=== PATIENT | female | born 2000 | race Caucasian/White ===

== ENCOUNTER → 2018-06-12 15:55 | Outpatient (CLI) | payer OTHER, SELFPAY ==
[2018-06-13 08:48] LABS: Rubella IgG 67.3 IU/mL
[2018-06-14 14:53] LABS: Hep B Surface Antibodies Reactive (.)
[2018-06-14 14:54] LABS: Mumps Antibody,IgG > 300.0 AU/mL (Immune >10.9); Rubeola IgG Ab > 300.0 AU/mL (Immune >29.9); V-Zoster IgG (Immunity) > 4000 index (Immune >165)
== END ==
PROVIDERS: Visit Provider Family Medicine
DX: Z02.9 Encounter for administrative examinations, unspecified (principal)
CPT/HCPCS: 36415; 86706; 86735; 86762; 86765; 86787

== ENCOUNTER → 2018-09-17 18:49 | Outpatient (CLI) | payer OTHER, SELFPAY ==
[2018-09-17 10:00] VITALS: BMI 28.0
[2018-09-17 21:13] LABS: Chlamydia Trachomatis by PCR Negative (Negative); Neisserai gonorrhoeae by PCR Negative (Negative); Probe Check PASS; Sample Adequacy Control PASS; Specimen Processing Control PASS
== END ==
PROVIDERS: Family Provider Family Medicine; PCP Family Medicine; Referring Provider Nurse Practitioner Women's Health; Visit Provider Nurse Practitioner Women's Health
DX: Z11.3 Encounter for screening for infections with a predominantly sexual mode of transmission (principal)
CPT/HCPCS: 87491; 87591

== ENCOUNTER → 2019-09-18 13:44 | Outpatient (CLI) | payer OTHER, SELFPAY ==
[2019-09-18 10:25] VITALS: BMI 28.0
[2019-09-18 18:17] LABS: Chlamydia Trachomatis by PCR Negative (Negative); Neisserai gonorrhoeae by PCR Negative (Negative); Probe Check PASS; Sample Adequacy Control PASS; Specimen Processing Control PASS
[2019-09-23 22:39] LABS: HPV Reflexed? NOT INDICATED
== END ==
PROVIDERS: Family Provider Family Medicine; PCP Family Medicine; Visit Provider Nurse Practitioner Women's Health
DX: Z11.3 Encounter for screening for infections with a predominantly sexual mode of transmission (principal); Z12.4 Encounter for screening for malignant neoplasm of cervix
CPT/HCPCS: 87491; 87591; 88175; G0145

== ENCOUNTER → 2020-07-23 14:29 | Outpatient (CLI) | payer OTHER, SELFPAY ==
[2019-09-18 10:25] VITALS: BMI 28.0
[2020-07-23 17:59] LABS: Absolute Lymphocyte Count 1.32 X10^3/uL (0.83-4.51); Absolute Neutrophil Count 2.1 X10^3/uL (2.0-7.7); Basophil# 0.01 X10^3/uL; Basophil% 0.3 % (0-1); Eosinophil# 0.01 X10^3/uL; Eosinophils% 0.3 % (0-5); Hematocrit 42.3 % (37-47); Hemoglobin 13.3 g/dL (12.0-15.0); Lymphocyte # 1.32 X10^3/ul; Lymphocyte % 34.8 % (19-41); Mean Corp Hgb Conc 31.4 g/dL (32-36); Mean Corpuscular Hgb 26.2 pg (27.0-32.0); Mean Corpuscular Volume 83.4 fL (81-99); Mean Platelet Vol. 9.5 fl (6.2-12.0); Monocyte# 0.33 X10^3/uL; Monocyte% 8.7 % (0-10); NRBC Flagged by Analyzer 0 % (0-5); Neutrophil # 2.12 X10^3/uL (2.7-7.7); Neutrophil % 55.9 % (47-70); Platelet Count 358 K/mm3 (150-450); RBC Distribution Width CV 13.9 % (11.6-14.6); RBC Distribution Width SD 42.2 fl (35.1-43.9); Red Blood Count 5.07 M/mm3 (4.2-5.4); White Blood Count 3.8 K/mm3 (4.4-11.0)
[2020-07-23 18:06] LABS: Color, Urine Yellow (Yellow); Glucose, Dipstick Normal (Normal); Ketone-Dipstick Negative (Negative); Leukocyte Esterase-Dipstick Negative /ul (Negative); Nitrite-Dipstick Negative (Negative); Occult Blood-Urine 150 /ul (Negative); Protein-Dipstick 15 mg/dl (Negative); Urine Bilirubin Dipstick Negative (Negative); Urine Clarity Clear (Clear); Urine Urobilinogen Normal (Normal)
[2020-07-23 18:17] LABS: ALB/GLOB Ratio 0.8 RATIO (0.9-2.4); AST(SGOT) 16 U/L (15-37); Alanine Aminotransfer ALT/SGPT 28 U/L (13-56); Albumin, Serum 3.5 g/dL (3.2-5.0); Alkaline Phosphatase 96 U/L (45-117); Anion Gap 6 (5-15); BUN 9 mg/dL (7-18); BUN/Creat Ratio 10.5 RATIO (10-20); Bilirubin, Direct 0.11 mg/dL (0.00-0.30); Calcium,Total 9.1 mg/dL (8.5-10.1); Chloride 107 mmol/L (98-107); Cholesterol 219 mg/dL (200); Creatinine, Serum 0.86 mg/dL (0.55-1.02); EST Glomerular Filtration Rate 88 mL/min (>60); Est Glom Filt Rate - Afr Amer 107 mL/min (>60); Globulin 4.6 g/dL (2.2-4.2); Glucose 94 mg/dL (74-106); High Density Lipoprotein 55 mg/dL; LDH 139 U/L (84-246); Phosphorus 2.5 mg/dL (2.5-4.9); Potassium 3.8 mmol/L (3.5-5.1); Protein, Total 8.1 g/dL (6.4-8.2); Sodium Level 140 mmol/L (136-145); Triglycerides 150 mg/dL; Uric Acid 5.1 mg/dL (2.6-6.0); Very Low Density Lipoprotein 30 mg/dL (5-40)
== END ==
PROVIDERS: PCP Family Medicine; Referring Provider Family Medicine; Visit Provider Family Medicine
DX: Z00.00 Encounter for general adult medical examination without abnormal findings (principal)

== ENCOUNTER → 2020-09-21 | Outpatient (CLI) | payer OTHER, SELFPAY ==
[2020-09-21 10:07] VITALS: BMI 28.0
[2020-09-21 16:54] LABS: Chlamydia Trachomatis by PCR Negative (Negative); Neisserai gonorrhoeae by PCR Negative (Negative); Probe Check PASS; Sample Adequacy Control PASS; Specimen Processing Control PASS
== END | disposition home or self-care (01) ==
LOC: LABSPEC 13:22
PROVIDERS: PCP Family Medicine; Referring Provider Nurse Practitioner Women's Health; Visit Provider Nurse Practitioner Women's Health
DX: Z11.3 Encounter for screening for infections with a predominantly sexual mode of transmission (principal)
CPT/HCPCS: 87491; 87591

== ENCOUNTER → 2021-01-25 09:48 | Outpatient (CLI) | payer OTHER, SELFPAY ==
[2020-09-21 10:07] VITALS: BMI 28.0
--- NOTE | 2021-01-25 09:54 | US_ITS ---
STUDY: RENAL ULTRASOUND - COMPLETE REASON FOR EXAM: Female, 20 years old. ENCOUNTER FOR SCREENING OTHER DISORDER -- ENCOUNTER FOR OTHER DISORDER FAMILY HX POLYCYSTIC KIDNEYS TECHNIQUE: Ultrasound evaluation of the kidneys was performed with real-time and static urbano-scale imaging. COMPARISON: None. FINDINGS: RIGHT KIDNEY: Normal location of the right kidney, which is normal in size. The right kidney measures 10.2 cm x 5 cm x 4.3 cm. There is a normal cortex of the right kidney. The renal cortex measures 1.3 cm. There is no right renal mass or cyst. There are no right renal calculi. There is no right hydronephrosis. DISTAL RIGHT URETER: There is non-visualization of the distal right ureter. There is no demonstrated right ureterovesical junction calculus. There is no demonstrated right ureteral jet. LEFT KIDNEY: Normal location of the left kidney, which is normal in size. The left kidney measures 10.3 cm x 4.7 cm x 5.1 cm. There is a normal cortex of the left kidney. The renal cortex measures 1.9 cm. There is no left renal mass or cyst. There are no left renal calculi. There is no left hydronephrosis. DISTAL LEFT URETER: There is non-visualization of the distal left ureter. There is no demonstrated left ureterovesical junction calculus. There is no demonstrated left ureteral jet. BLADDER: The distended urinary bladder has a volume of 340 ml. There is a normal wall thickness of the distended urinary bladder. There is no demonstrated mass within the urinary bladder. There are no demonstrated bladder calculi. US/Kidney and Bladder IMPRESSION: Normal ultrasound of the kidneys and urinary bladder. Electronically Signed: Derek Lambert MD at 10:47 EDT , Service support ,
[2021-01-25 11:23] LABS: Protein, Urine (Random) 10.3 mg/dL (<11.9); Protein:Creat Ratio 79 mg/g CRE (0-200)
[2021-01-25 11:33] LABS: Albumin, Serum 3.3 g/dL (3.2-5.0); BUN 10 mg/dL (7-18); BUN/Creat Ratio 13.1 RATIO (10-20); Calcium,Total 8.8 mg/dL (8.5-10.1); Chloride 107 mmol/L (98-107); Creatinine, Serum 0.76 mg/dL (0.55-1.02); EST Glomerular Filtration Rate 100 mL/min (>60); Est Glom Filt Rate - Afr Amer 121 mL/min (>60); Glucose 84 mg/dL (74-106); Phosphorus 2.6 mg/dL (2.5-4.9); Potassium 3.7 mmol/L (3.5-5.1); Sodium Level 140 mmol/L (136-145)
== END ==
PROVIDERS: PCP Family Medicine; Referring Provider Internal Medicine Nephrology; Visit Provider Internal Medicine Nephrology
DX: Z13.89 Encounter for screening for other disorder (principal)
CPT/HCPCS: 36415; 76770; 80069; 82570; 84156

== ENCOUNTER → 2021-04-28 | Outpatient (CLI) | payer OTHER, SELFPAY ==
[2020-09-21 10:07] VITALS: BMI 28.0
== END | disposition home or self-care (01) ==
LOC: LABSPEC 10:40
PROVIDERS: PCP Family Medicine; Visit Provider Registered Nurse
DX: N90.7 Vulvar cyst (principal)
CPT/HCPCS: 87070; 87205

== ENCOUNTER → 2021-06-30 08:02 | Outpatient (REF) | payer OTHER, SELFPAY ==
[2021-06-30 09:41] LABS: Probe Check PASS; Specimen Processing Control PASS
== END ==
LOC: EMPH 08:02
PROVIDERS: PCP Family Medicine; Visit Provider Internal Medicine Infectious Disease
DX: Z00.00 Encounter for general adult medical examination without abnormal findings (principal)
CPT/HCPCS: 87635; U0005; U0003

== ENCOUNTER → 2021-07-07 15:01 | Outpatient (CLI) | payer OTHER, SELFPAY ==
[2021-07-07 17:39] LABS: Hemoglobin 12.7 g/dL (12.0-15.0); Mean Corp Hgb Conc 32.6 g/dL (32-36); Mean Corpuscular Volume 79.8 fL (81-99); Mean Platelet Vol. 9.8 fl (6.2-12.0); POSITIVE DIFFERENTIAL YES; POSITIVE MORPHOLOGY YES; Platelet Count 254 K/mm3 (150-450); RBC Distribution Width CV 14.1 % (11.6-14.6); RBC Distribution Width SD 41.3 fl (35.1-43.9); Red Blood Count 4.89 M/mm3 (4.2-5.4); White Blood Count 8.1 K/mm3 (4.4-11.0)
[2021-07-07 17:52] LABS: ALB/GLOB Ratio 0.5 RATIO (0.9-2.4); AST(SGOT) 129 U/L (15-37); Alanine Aminotransfer ALT/SGPT 175 U/L (13-56); Albumin, Serum 2.9 g/dL (3.2-5.0); Alkaline Phosphatase 274 U/L (45-117); Anion Gap 8 (5-15); BUN 6 mg/dL (7-18); BUN/Creat Ratio 6.9 RATIO (10-20); Calcium,Total 8.7 mg/dL (8.5-10.1); Chloride 106 mmol/L (98-107); Creatinine, Serum 0.86 mg/dL (0.55-1.02); EST Glomerular Filtration Rate 87 mL/min (>60); Est Glom Filt Rate - Afr Amer 105 mL/min (>60); Globulin 5.4 g/dL (2.2-4.2); Glucose 110 mg/dL (74-106); Potassium 3.7 mmol/L (3.5-5.1); Protein, Total 8.3 g/dL (6.4-8.2); Sodium Level 137 mmol/L (136-145)
[2021-07-07 19:23] LABS: Differential Indicated MANUAL DIFF
[2021-07-07 19:24] LABS: Atypical Lymphocyte 2+ %; Differential Comment SCANNED; Eosinophil 1 % (0-5); Lymphocyte 80 % (19-41); Monocyte 1 % (0-10); Neutrophil-Segmented 18 % (47-70); Platelet Estimate ADEQUATE (ADEQ); Total Cells Counted 100 (MANUAL DIFF)
[2021-07-07 19:25] LABS: Pathologist Review May foll; Red Cell Morphology NORM C+C NORMAL (NORM C&C)
[2021-07-07 19:26] LABS: Absolute Neutrophil Count 1.5 X10^3/uL (2.0-7.7); Neutrophil # 1.46 X10^3/uL (2.7-7.7)
[2021-07-07 19:27] LABS: Absolute Lymphocyte Count 6.48 X10^3/uL (0.83-4.51); Lymphocyte # 6.48 X10^3/ul (0.83-4.51)
[2021-07-08 10:33] LABS: Internal QC Validated? YES +Cl - CLEAR BKGD; Monotest POSITIVE (Negative)
== END ==
PROVIDERS: PCP Family Medicine; Referring Provider Family Medicine; Visit Provider Family Medicine
DX: R50.9 Fever, unspecified (principal); D72.820 Lymphocytosis (symptomatic)
CPT/HCPCS: 36415; 80053; 85025; 86140; 86308

== ENCOUNTER → 2021-07-30 16:23 | Outpatient (CLI) | payer OTHER, SELFPAY ==
[2021-07-30 16:41] LABS: Absolute Neutrophil Count 1.5 X10^3/uL (2.0-7.7); Basophil# 0.04 X10^3/uL; Eosinophil# 0.26 X10^3/uL; Eosinophils% 6.6 % (0-5); Hematocrit 37.3 % (37-47); Hemoglobin 11.9 g/dL (12.0-15.0); Lymphocyte % 45.5 % (19-41); Mean Corp Hgb Conc 31.9 g/dL (32-36); Mean Corpuscular Hgb 25.9 pg (27.0-32.0); Mean Corpuscular Volume 81.3 fL (81-99); Mean Platelet Vol. 8.8 fl (6.2-12.0); Monocyte# 0.36 X10^3/uL; Monocyte% 9.1 % (0-10); NRBC Flagged by Analyzer 0 % (0-5); Neutrophil # 1.48 X10^3/uL (2.7-7.7); Neutrophil % 37.3 % (47-70); Platelet Count 286 K/mm3 (150-450); RBC Distribution Width CV 14.9 % (11.6-14.6); RBC Distribution Width SD 44.5 fl (35.1-43.9); Red Blood Count 4.59 M/mm3 (4.2-5.4)
== END ==
PROVIDERS: PCP Family Medicine; Visit Provider Family Medicine
DX: B27.90 Infectious mononucleosis, unspecified without complication (principal)
CPT/HCPCS: 36415; 85025; 87070; 87077

== ENCOUNTER 2021-08-11 00:15 | Observation (INO) | payer OTHER, SELFPAY ==
[2021-08-11] VITALS (9 sets, daily range): BP systolic 105–144; BP diastolic 66–94; PULSE 76–107; RESP 14–23; TEMP 36.4–37; O2SAT 97–100; BMI 28.6; BMI 28.5
--- NOTE | 2021-08-11 01:20 | EKG12_ITS ---
Test Reason : CP Blood Pressure : / mmHG Vent. Rate : 101 BPM Atrial Rate : 101 BPM P-R Int : 138 ms QRS Dur : 078 ms QT Int : 360 ms P-R-T Axes : 060 057 026 degrees QTc Int : 466 ms Sinus tachycardia Otherwise normal ECG Confirmed by ALEXANDER CINTRON, SILVIA ([id number]), editor newspaper KEYANA ANDREWS ([id number]) on 08/17/2021 6:28:45 AM Referred By: BHARATHI Confirmed By:SILVIA MUNOZ MD
[2021-08-11 01:28] LABS: Absolute Lymphocyte Count 1.91 X10^3/uL (0.83-4.51); Basophil# 0.03 X10^3/uL; Basophil% 0.8 % (0-1); Eosinophil# 0.35 X10^3/uL; Eosinophils% 9.1 % (0-5); Hemoglobin 11.1 g/dL (12.0-15.0); Lymphocyte # 1.91 X10^3/ul (0.83-4.51); Lymphocyte % 49.6 % (19-41); Mean Corp Hgb Conc 32.6 g/dL (32-36); Mean Corpuscular Hgb 25.6 pg (27.0-32.0); Mean Corpuscular Volume 78.3 fL (81-99); Mean Platelet Vol. 8.5 fl (6.2-12.0); Monocyte% 15.6 % (0-10); NRBC Flagged by Analyzer 0 % (0-5); Neutrophil # 0.95 X10^3/uL (2.7-7.7); Neutrophil % 24.6 % (47-70); POSITIVE DIFFERENTIAL YES; Platelet Count 326 K/mm3 (150-450); RBC Distribution Width SD 39.7 fl (35.1-43.9); Red Blood Count 4.34 M/mm3 (4.2-5.4); White Blood Count 3.9 K/mm3 (4.4-11.0)
[2021-08-11 01:29] LABS: Differential Indicated SCAN CRITERIA MET
--- NOTE | 2021-08-11 01:37 | EDS_ITS ---
HPI History of Present Illness Chief Complaint: Chest Pain Narrative Narrative: Patient is a 20-year-old female who reports no significant past medical or surgical history. Today she's had intermittent bouts of chest discomfort which she states typically occurs when she is sitting up or leaning forward. She denies any trauma prior to the pain beginning and she denies any sick symptoms such as cough congestion. She denies any recent surgery traveler history of DVT/PE. She states that because the symptoms have been persistent for the past few days she is concerned and therefore presents for evaluation [facility] Medical History URI (upper respiratory infection) Home Medications norgestimate 0.25 mg-ethinyl estradiol 35 mcg tablet 1 tab PO QDAY #84 tab 09/21/20 [Rx Last Taken Unknown] Allergy/AdvReac Type Severity Reaction Status Date / Time Penicillins Allergy Mild Family Verified 09/21/20 10:05 history of reaction Family History Mother Kidney failure Heart disease Social History Smoking Status: Never smoker alcohol intake: current details: occasionally substance use type: does not use caffeine: Yes what type of physical activity do you participate in: none seatbelt use: always do you feel safe at home: Yes additional social history: [facility] lab ROS ROS ED Constitutional Constitutional ED: Denies chills or fever(s) ENT ENT ED: Denies rhinorrhea or sore throat Cardiovascular Cardiovascular: Reports chest pain; Denies palpitations or racing heartbeat Respiratory/Chest Respiratory/Chest: Denies cough or dyspnea Gastrointestinal Gastrointestinal: Denies abdominal pain, diarrhea, nausea or vomiting Genitourinary Genitourinary ED: Denies dysuria Musculoskeletal Musculoskeletal: Denies myalgias Integumentary Denies rash Neurologic Neurologic: Denies headache(s) Hematologic/Lymphatic Hematologic/Lymphatic: Denies easy bleeding or easy bruising EXAM Physical Exam Const Vital Signs: 08/11/21 00:16 08/11/21 00:44 08/11/21 03:38 Temperature 97.5 F L Temperature Source Temporal Pulse Rate 107 H 86 Respiratory Rate 18 23 H Respiratory Effort Normal Non-Labored Blood Pressure 144/94 H Blood Pressure Mean 110 Pulse Ox 100 98 Oxygen Delivery Method Room Air Room Air 08/11/21 05:15 Temperature Temperature Source Pulse Rate 77 Respiratory Rate 16 Respiratory Effort Blood Pressure Blood Pressure Mean Pulse Ox 98 Oxygen Delivery Method Room Air Positive well nourished and well developed General Appearance ED: well developed HEENT Reports moist mucous membranes Eyes PERRL and EOMs intact bilaterally Neck supple Chest Wall inspection of chest normal and palpation of chest normal Resp normal respiratory effort and clear to auscultation bilaterally Effort and Inspection: Negative for respiratory distress Cardio regular rate and regular rhythm Rate: other Other Details: No activity or friction rub noted GI normal to inspection, nondistended, normoactive bowel sounds, soft to palpation, non-tender, non-distended and no masses Auscultation: normoactive bowel sounds Palpation: soft Extremity normal to inspection Extremity Narrative: No asymmetric edema no pitting edema negative homicide bilaterally Neuro oriented x3 and CN's II-XII intact bilaterally Sensorium / Orientation: awake and alert Motor Exam: strength 5/5 throughout Psych mental status grossly normal Skin no rashes or lesions noted Heart Score History: Slightly/Non-Suspicious ECG: Normal Age: </= 45 years Risk Factors: No Risk Factors Troponin: >/=3 x Normal Limit Score: 2 MDM MDM MDM Narrative Medical decision making narrative: Patient presented to the ER just slightly tachycardic but otherwise in no acute distress. Her risk factors for coronary artery disease as well as DVT/PE are extremely low. However as she reported chest discomfort basic workup was obtained. Her initial troponin is elevated at 216 with the tachycardia D dimer was added. This was elevated and therefore CTA was obtained. CT revealed no acute pulmonary embolus or lung pathology. Delta troponin does show elevation trending up to 239. The case was discussed with cardiology and they recommend obtaining a high-sensitivity CRP a ESR COVID swab and a repeat troponin as well as EKG. they also recommend patient be admitted to observation for an echo later today. This plan of treatment was discussed with patient who was agreeable and therefore be admitted secondary to elevated troponin with concern that this is secondary to a viral myocarditis. Lab Data Attestation: I reviewed the patient's lab results. Labs: Laboratory Results - last 24 hr 08/11/21 08/11/21 08/11/21 01:22 01:22 01:22 WBC 3.9 L RBC 4.34 Hgb 11.1 L Hct 34.0 L MCV 78.3 L MCH 25.6 L MCHC 32.6 RDW Std Deviation 39.7 RDW Coeff of Luis 14.0 Plt Count 326 MPV 8.5 Immature Gran % (Auto) 0.300 Neut % (Auto) 24.6 L Lymph % (Auto) 49.6 H [place] % (Auto) 15.6 H Eos % (Auto) 9.1 H Baso % (Auto) 0.8 Absolute Neuts (auto) 1.0 L Absolute Lymphs (auto) 1.91 Nucleated RBC % 0 Differential Comment SCANNED Atypical Lymphocytes RARE PT INR APTT D-Dimer Quant (PE/DVT) 0.55 H* Sodium 141 Potassium 3.8 Chloride 108 H Carbon Dioxide 28.0 Anion Gap 5 BUN 12 Creatinine 0.76 Estim Creat Clear Calc 108.69 Est GFR (MDRD) Af Amer 121 Est GFR (MDRD) Non-Af 100 BUN/Creatinine Ratio 15.7 Glucose 115 H Calcium 8.7 Troponin I High Sens 216 H* 08/11/21 08/11/21 01:22 03:30 WBC RBC Hgb Hct MCV MCH MCHC RDW Std Deviation RDW Coeff of Luis Plt Count MPV Immature Gran % (Auto) Neut % (Auto) Lymph % (Auto) [place] % (Auto) Eos % (Auto) Baso % (Auto) Absolute Neuts (auto) Absolute Lymphs (auto) Nucleated RBC % Differential Comment Atypical Lymphocytes PT 13.6 INR 1.1 APTT 35.0 D-Dimer Quant (PE/DVT) Sodium Potassium Chloride Carbon Dioxide Anion Gap BUN Creatinine Estim Creat Clear Calc Est GFR (MDRD) Af Amer Est GFR (MDRD) Non-Af BUN/Creatinine Ratio Glucose Calcium Troponin I High Sens 239 H* Radiography Diagnostic Testing: Clinical Impression(s) from Imaging Studies Chest X-Ray 08/11/21 01:39 IMPRESSION: Radiographic findings suggest acute exacerbation of reactive airway disease and/or viral infection. Electronically Signed: Mariana Alfonso MD at 3:01 EDT , Service support , Chest CTA 08/11/21 01:55 IMPRESSION: No CTA demonstrated pulmonary embolism or arterial dissection. Electronically Signed: Mariana Alfonso MD at 3:27 EDT , Service support , Discharge Plan Triage Chief Complaint: Chest Pain ED Provider: Jama Frazier Dx/Rx/DC Orders Clinical Impression: Myocarditis, Elevated troponin Prescriptions: No Action norgestimate-ethinyl estradiol [Sprintec (28)] 0.25-35 mg-mcg tablet 1 tab PO QDAY Qty: 84 RF: 4 Primary Care Provider: Damion Rodriguez Referrals: Damion Rodriguez MD [Primary Care Provider] - Disposition Disposition: Acute Care Hospital [facility]
--- NOTE | 2021-08-11 01:39 | RAD_ITS ---
STUDY: X-RAY CHEST REASON FOR EXAM: Female, 20 years old patient with chest pain. TECHNIQUE: PA and lateral views of the chest. COMPARISON: Prior comparison studies are not available for review at this time. FINDINGS: Cardiac monitoring leads are present. The lungs are expanded. There is peribronchial cuffing and perihilar interstitial thickening. There is no evidence for airspace consolidation. There is no demonstrated pleural abnormality. Normal size heart. Normal mediastinum and chela. Normal visualized pulmonary arteries. Normal visualized aortic arch and descending thoracic aorta. Normal visualized thoracic spine. Normal visualized ribs, clavicles, and shoulders. There is no demonstrated abnormality of the visualized soft tissue structures of the upper abdomen. RAD/Chest PA and Lateral IMPRESSION: Radiographic findings suggest acute exacerbation of reactive airway disease and/or viral infection. Electronically Signed: Mariana Alfonso MD at 3:01 EDT , Service support ,
[2021-08-11 01:50] LABS: D-Dimer Quantitative (DVT/PE) 0.55 FEU/ug/m (0.27-0.49)
[2021-08-11 01:51] LABS: Anion Gap 5 (5-15); BUN 12 mg/dL (7-18); BUN/Creat Ratio 15.7 RATIO (10-20); Calcium,Total 8.7 mg/dL (8.5-10.1); Chloride 108 mmol/L (98-107); Creatinine, Serum 0.76 mg/dL (0.55-1.02); EST Glomerular Filtration Rate 100 mL/min (>60); Est Glom Filt Rate - Afr Amer 121 mL/min (>60); Estimated Creatinine Clearance 108.69 ml/min; Glucose 115 mg/dL (74-106); Potassium 3.8 mmol/L (3.5-5.1); Sodium Level 141 mmol/L (136-145); Troponin-I HS 216 pg/mL (3.0-54.0)
[2021-08-11 01:54] LABS: Atypical Lymphocyte RARE %; Differential Comment SCANNED
--- NOTE | 2021-08-11 01:55 | CT_ITS ---
STUDY: CTA CHEST REASON FOR EXAM: Female, 20 years old patient with chest pain with elevated D-Dimer RADIATION DOSAGE (If Supplied By Facility): CTDIvol = ( 8.36 ) mGy, DLP = ( 233.28 ) mGycm TECHNIQUE: The examination was performed with the intravenous administration of 75 mL of Isovue-370. Post-processing of the angiographic images was performed, with multiplanar reformation and 3D reconstruction. Individualized dose optimization techniques were used for this CT. COMPARISON: Prior comparison studies are not available for review at this time. FINDINGS: Normal enhancement of the main pulmonary artery and right and left pulmonary arteries. Normal enhancement of the bilateral peripheral pulmonary arteries. There is no demonstrated pulmonary embolism. Normal thoracic aorta and visualized great vessels. There is no demonstrated aortic dissection. Normal heart and pericardium. Normal mediastinum. Normal hilar regions. Normal visualized trachea and bronchi. The lungs are well expanded. Normal pulmonary parenchyma. Normal pleura. Normal chest wall structures. Normal osseous structures. Normal visualized upper abdomen. CT/CTA Chest W/WO Contrast IMPRESSION: No CTA demonstrated pulmonary embolism or arterial dissection. Electronically Signed: Mariana Alfonso MD at 3:27 EDT , Service support ,
[2021-08-11] MEDS: Aspirin 81 MG TAB.CHEW 324 MG PO (01:56)
[2021-08-11] MEDS: 0.9% Normal Saline 1,000 ML 999 ML IV (01:59)
[2021-08-11 02:18] LABS: International Normalized Ratio 1.1; Prothrombin Time (Protime)PT. 13.6 SECONDS (11.7-14.9)
[2021-08-11 04:00] LABS: Troponin-I HS 239 pg/mL (3.0-54.0)
--- NOTE | 2021-08-11 05:16 | EKG12_ITS ---
Test Reason : REPEAT EKG Blood Pressure : / mmHG Vent. Rate : 095 BPM Atrial Rate : 095 BPM P-R Int : 138 ms QRS Dur : 078 ms QT Int : 368 ms P-R-T Axes : 064 060 044 degrees QTc Int : 462 ms Normal sinus rhythm Normal ECG Confirmed by ALEXANDER CINTRON, SILVIA ([id number]), social media editor KEYANA ANDREWS ([id number]) on 08/17/2021 6:29:03 AM Referred By: BHARATHI Confirmed By:SILVIA MUNOZ MD
--- NOTE | 2021-08-11 05:53 | HP.PCM.HOS_ITS ---
HPI - General General Date of Admission: 08/11/21 HPI Narrative FAISAL CROCKETT, is a 20 F with previously no significant medical condition who presents with 2-day history of left-sided chest pain that radiated to her left neck and into the left side of her head. She described the pain as sharp and intermittent. The highest severity of the pain is 7 on a scale of 1-10. The pain improves with lying back and; lying on her abdomen. The pain worsens with leaning forward or bending over. She denies any nausea, vomiting or diaphoresis. She reported that about a month ago she had mononucleosis. Also close to 2 weeks ago she was diagnosed with Streptococcus pharyngitis. 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 Her mother has had a dislocated when she (mother) was in the 50s. [facility] Medical History URI (upper respiratory infection) Home Medications norgestimate 0.25 mg-ethinyl estradiol 35 mcg tablet 1 tab PO QDAY #84 tab [Rx Last Taken Unknown] Allergy/AdvReac Type Severity Reaction Status Date / Time Penicillins Allergy Mild Family Verified 09/21/20 10:05 history of reaction Family History Mother Kidney failure Heart disease Surgical History no surgical history no surgical history Social History Smoking Status: Never smoker alcohol intake: current details: occasionally substance use type: does not use caffeine: Yes what type of physical activity do you participate in: none seatbelt use: always do you feel safe at home: Yes additional social history: [facility] lab ROS ROS Narrative Constitutional: Denies fever, chills, fatigue, anorexia and change in weight Eyes: Denies blurry vision, change in eye color, change in vision, discharge from eye(s), double vision, erythema, eye pain, loss of vision or other HEENT: Reports headache. Denies abnormal hearing, dysphagia, ear pain, epistaxis, hearing loss, nasal congestion, nasal discharge, post nasal drip, sinus pressure, sore throat or other Cardiovascular: Report chest pain. Denies palpitations. Denies dyspnea on exertion, orthopnea and paroxysmal nocturnal dyspnea Respiratory/Chest: Denies cough, excessive phlegm production, shortness of breath with exertion and wheezing Gastrointestinal: Denies abdominal pain, coffee ground emesis, constipation, abigail rrhea, dyspepsia, hematemesis, hematochezia, loose stools, melena, nausea, vomiting or other Genitourinary: Denies burning urination, difficulty urinating, dysuria, hematuria, nocturia, urinary frequency, urinary hesitancy, urinary incontinence, urinary urgency or other Musculoskeletal: Reports left-sided neck pain. Denies arthralgias, back pain, joint pain, joint stiffness, joint swelling, myalgias, or other Neurologic: Denies abnormal gait, abnormal speech, confusion, disequilibrium, dizziness, focal weakness, headache(s), numbness, paresthesias, seizure-like activity, seizures, syncope, tingling, tremor(s) or other Psychiatric: Denies anxiety, depression, homicidal ideation, suicidal ideation or other Endocrinology: Denies change in body appearance, cold intolerance, excessive sweating, heat intolerance, polydipsia, polyuria or other Hematologic/Lymphatic: Denies anemia, easy bleeding, easy bruising, lymphadenopathy or other Integumentary: Denies rashes Allergic/Immunologic: Denies rhinitis, hives, eczema, asthma or other Vital Signs Vital Signs Vital Signs: 08/11/21 00:16 08/11/21 00:44 08/11/21 03:38 Temperature 97.5 F L Temperature Source Temporal Pulse Rate 107 H 86 Respiratory Rate 18 23 H Respiratory Effort Normal Non-Labored Blood Pressure 144/94 H Blood Pressure Mean 110 Pulse Ox 100 98 Oxygen Delivery Method Room Air Room Air 08/11/21 05:15 Temperature Temperature Source Pulse Rate 77 Respiratory Rate 16 Respiratory Effort Blood Pressure Blood Pressure Mean Pulse Ox 98 Oxygen Delivery Method Room Air Weight Weight: 80.467 kg Body Mass Index (BMI) 28.6 Physical Exam Narrative Physical exam: General: Well-nourished, well-developed. Head: Normocephalic, atraumatic, no tenderness Eyes: PERRLA, EOMI ENT, no trauma, moist mucous membranes, no rhinorrhea Neck: Nontender, full range of motion, no spinal tenderness, deformities, step- off CVS: Regular rate and rhythm. S1-S2 present. No murmur, gallop or rub. Respiratory : clear to auscultation bilaterally, chest wall nontender, no wheezing Abdomen: Soft, nontender, nondistended, normal bowel sounds, no masses : Deferred Back: Nontender, no CVA tenderness, no midline spinal tenderness, deformities, step-offs Extremities: Nontender full range of motion, no trauma Skin: Normal color, no trauma, abrasions Neuro: Alert, oriented, cranial nerves II through XII grossly intact. Psychiatry: Normal mood. Normal affect. Not depressed. Not anxious. Results Lab / Micro Data Result Diagrams: 08/11/21 01:22 08/11/21 01:22 Labs: Laboratory Results - last 24 hr 08/11/21 01:22: WBC 3.9 L, RBC 4.34, Hgb 11.1 L, Hct 34.0 L, MCV 78.3 L, MCH 25.6 L, MCHC 32.6, RDW Std Deviation 39.7, RDW Coeff of Luis 14.0, Plt Count 326, MPV 8.5, Immature Gran % (Auto) 0.300, Neut % (Auto) 24.6 L, Lymph % (Auto) 49.6 H, [place] % (Auto) 15.6 H, Eos % (Auto) 9.1 H, Baso % (Auto) 0.8, Absolute Neuts (auto) 1.0 L, Absolute Lymphs (auto) 1.91, Nucleated RBC % 0, Differential Comment SCANNED, Atypical Lymphocytes RARE 08/11/21 01:22: D-Dimer Quant (PE/DVT) 0.55 H* 08/11/21 01:22: Sodium 141, Potassium 3.8, Chloride 108 H, Carbon Dioxide 28.0, Anion Gap 5, BUN 12, Creatinine 0.76, Estim Creat Clear Calc 108.69, Est GFR (MDRD) Af Amer 121, Est GFR (MDRD) Non-Af 100, BUN/Creatinine Ratio 15.7, Glucose 115 H, Calcium 8.7, Troponin I High Sens 216 H* 08/11/21 01:22: PT 13.6, INR 1.1, APTT 35.0 08/11/21 03:30: Troponin I High Sens 239 H* Radiology Impression Chest X-Ray 08/11/21 01:39 IMPRESSION: Radiographic findings suggest acute exacerbation of reactive airway disease and/or viral infection. Electronically Signed: Mariana Alfonso MD at 3:01 EDT , Service support , Chest CTA 08/11/21 01:55 IMPRESSION: No CTA demonstrated pulmonary embolism or arterial dissection. Electronically Signed: Mariana Alfonso MD at 3:27 EDT , Service support , Assessment & Plan Assessment/Plan (1) Chest pain: QUALIFIERS: Chest pain type: unspecified Qualified Code(s): R07.9 - Chest pain, unspecified (2) Elevated troponin: PLAN: Chest pain Differential diagnosis include myocarditis; musculoskeletal chest pain; or other. Radiologist impression of chest x-ray: Suggestive of acute exacerbation of reactive airway disease and/or viral infection. Chest CTA was independently interpreted and I agree with the radiologist interpretation above. Actual EKG tracing was independently visualized. EKG tracing showed sinus tachycardia with rate of 105 and sinus rhythm with rate of 95 and with V1 and V2 T wave inversions. Received full dose aspirin at the emergency department. ASA 81 mg p.o. daily ordered High sensitive troponin slightly increased and then with a small rise on repeat. Emergency Department doctor discussed the case with cardiology who recommended another high-sensitivity troponin; high-sensitivity CRP (ordered at the ED and will be at outside lab); and ESR. Cardiology recommended echocardiogram; ordered. Cardiology consult. Stat EKG as needed for chest pain DVT prophylaxis: Low risk. Charges/Coding Visit Charges OBSV E&M: [id number] Initial observation care L2
--- NOTE | 2021-08-11 06:24 | ECHOD_ITS ---
Reason For Study: Chest Pain Procedure This was a 2D Doppler, Color Flow transthoracic echocardiogram. Exam performed portable in patient room. Left Ventricle Normal LV size. Left ventricular systolic function is normal. The estimated ejection fraction is 60 %. Normal diastology for age. No regional wall motion abnormalities noted. Right Ventricle Normal RV size. Normal systolic function. Atria Normal left atrium. Normal right atrium. Mitral Valve Normal mitral valve. Tricuspid Valve Normal tricuspid valve. Aortic Valve Normal aortic valve. Trisinus/trileaflet aortic valve. Pulmonic Valve Normal pulmonic valve. Great Vessels Normal aortic root. The pulmonary artery is normal size. Normal inferior vena cava. Pericardium/Pleural Trivial pericardial effusion. MMode/2D Measurements & Calculations LVIDd: 3.7 cm IVSd: 1.00 cm Ao root diam: 2.7 cm LVIDs: 2.3 cm LVPWd: 1.1 cm LA dimension: 3.1 cm FS: 37.6 % LAV(MOD-bp): 25.9 ml LA A4 area: 12.7 cm2 RA A4 area: 10.4 cm2 LAV(MOD-bp) Indexed: 13.6 ml/m2 LAV(MOD-sp2): 22.0 ml LAV(MOD-sp4): 28.0 ml Time Measurements MV dec time: 0.24 sec Doppler Measurements & Calculations MV E max jerry: 94.9 cm/sec Lat Peak E' Jerry: 11.0 cm/sec Med Peak E' Jerry: 8.5 cm/sec MV A max jerry: 69.6 cm/sec E/E' lat: 8.7 E/E' med: 11.1 MV E/A: 1.4 MV V2 max: 93.2 cm/sec MV P1/2t max jerry: 93.2 cm/sec Ao V2 max: 124.6 cm/sec MV max P.5 mmHg MV P1/2t: 85.0 msec Ao max P.2 mmHg MV V2 mean: 59.0 cm/sec MV dec slope: 321.1 cm/sec2 MV mean P.6 mmHg MVA(P1/2t): 2.6 cm2 MV V2 VTI: 19.5 cm LV V1 max: 105.2 cm/sec PA V2 max: 122.3 cm/sec LV V1 max P.4 mmHg ECHO/Echo Complete Interpretation Summary Normal LV size. Left ventricular systolic function is normal. The estimated ejection fraction is 60 %. Trivial pericardial effusion. Normal diastology for age. Ordering Physician: Keanu Perez Referring Physician: Damion Rodriguez Performed By: Rojelio Zhu RCS
--- NOTE | 2021-08-11 06:24 | EKG12_ITS ---
Test Reason : Blood Pressure : / mmHG Vent. Rate : 094 BPM Atrial Rate : 094 BPM P-R Int : 144 ms QRS Dur : 078 ms QT Int : 362 ms P-R-T Axes : 070 065 035 degrees QTc Int : 452 ms Normal sinus rhythm Nonspecific T wave abnormality Abnormal ECG When compared with ECG of 11-AUG-2021 05:30, MANUAL COMPARISON REQUIRED, DATA IS UNCONFIRMED Confirmed by ALEXANDER CINTRON, SILVIA ([id number]), brands editor KEYANA ANDREWS ([id number]) on 08/11/2021 1:37:05 PM Referred By: CASSANDRA Confirmed By:SILVIA MUNOZ MD
[2021-08-11 06:34] LABS: Troponin-I HS 287 pg/mL (3.0-54.0)
--- NOTE | 2021-08-11 07:01 | CON.PCM.CA_ITS ---
Assessment & Plan Assessment/Plan (1) Pericarditis: PLAN: Suspect the patient has acute pericarditis. At the moment there are no obvious EKG changes other than the subtle MA depression. I would like us to obtain an echocardiogram. I think the troponin elevation as part of this complex. * Would recommend starting indomethacin 25 mg 3 times a day * Omeprazole 20 mg a day * High-sensitivity C-reactive protein is elevated and would await ESR as well as echocardiogram. (2) Chest pain: QUALIFIERS: Chest pain type: unspecified Qualified Code(s): R07.9 - Chest pain, unspecified PLAN: The above appears to be atypical for coronary disease. The troponin elevation I suspect is secondary to pericardial endomyocardial involvement. * Will check a follow-up troponin. If noted to be not significantly elevated and the echocardiogram is normal then I would suggest outpatient follow-up. * I have discussed the above with the patient who understands. * * Thank you for allowing me to participate in the care of your patient. Please don't hesitate to call if any issues arise. HPI Consult Data Date of Consult: 08/11/21 HPI Narrative HPI Narrative: FAISAL CROCKETT, is a 20 F who presents with chest discomfort which she describes as sharp on and off going on for the last few days. She says that she did contract infectious mononucleosis a few weeks ago as well as a strep infection approximately a week ago. She had not been running any fever no diaphoresis no shortness of breath. However she describes a sharp chest discomfort going up the side of her neck and her shoulder as well as her arm. It appeared to be worse when she was laying recumbent. If she was lying on her left side it was also noted to be worse. She was not clear whether it was better when she was sitting up. 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 He was noted to be elevated. I was called to render an opinion. FORMERLY [facility], 1928–1983 Medical History URI (upper respiratory infection) Home Medications norgestimate 0.25 mg-ethinyl estradiol 35 mcg tablet 1 tab PO QDAY #84 tab 09/21/20 [Rx Last Taken Unknown] Allergy/AdvReac Type Severity Reaction Status Date / Time Penicillins Allergy Mild Family Verified 09/21/20 10:05 history of reaction Family History Mother Kidney failure Heart disease Surgical History no surgical history Social History Smoking Status: Never smoker alcohol intake: current details: occasionally substance use type: does not use caffeine: Yes what type of physical activity do you participate in: none seatbelt use: always do you feel safe at home: Yes additional social history: [facility] lab ROS Constitutional Constitutional: Denies fever(s) or weight loss Eyes Eyes: Reports systems reviewed and no addt'l complaints, except as documented ENT HEENT: Reports systems reviewed and no addt'l complaints, except as documented Cardiovascular Cardiovascular: Reports chest pain at rest and chest pain with activity; Denies dyspnea at rest, dyspnea on exertion, edema, palpitations or paroxysmal nocturnal dyspnea Respiratory/Chest Respiratory/Chest: Denies dyspnea on exertion, productive cough, shortness of breath at rest or shortness of breath with exertion Gastrointestinal Gastrointestinal: Denies change in bowel habits, nausea, vomiting or weight changes Genitourinary Genitourinary: Denies difficulty urinating Musculoskeletal Musculoskeletal: Denies joint stiffness or muscle weakness Integumentary Integumentary: Denies lesions Neurologic Neurologic: Denies dizziness or syncope Psychiatric Psychiatric: Denies anxiety Endocrine Endocrinology: Denies excessive sweating or fatigue Hematologic/Lymphatic Hematologic/Lymphatic: Denies anemia Allergic/Immunologic Allergic/Immunologic: Denies seasonal rhinorrhea Physical Exam Const alert, oriented x3 and no apparent distress General Appearance: cooperative HEENT hearing grossly normal bilaterally Head and Scalp: atraumatic Eyes EOMs intact bilaterally Neck General: normal visual inspection Chest inspection of chest normal and palpation of chest normal Resp normal respiratory effort Auscultation: clear to auscultation bilaterally Cardio regular rate, regular rhythm, S1 normal heart sound and S2 normal heart sound Jugular Venous Distention: JVD GI normal to inspection, nondistended, normoactive bowel sounds Extremity normal capillary refill and no pedal edema Peripheral Pulses: Yes pulses 2+ throughout and femoral pulses present Skin no rashes or lesions noted Neuro oriented x3 and CN's II-XII intact bilaterally Psych Appearance: grossly normal and appropriate Objective Data Vital Signs: Vital Signs Temp Pulse Resp BP Pulse Ox 98.0 F 105 H 14 121/69 H 99 08/11/21 06:25 08/11/21 06:38 08/11/21 06:25 08/11/21 06:25 08/11/21 06:25 Oxygen Delivery Method Room Air Weight: 177 lb 4.026 oz Body Mass Index (BMI) 28.5 Intake & Output: Intake and Output for Last 24 Hours 08/09/21 08/10/21 08/11/21 23:59 23:59 23:59 Intake Total 1000 / 1000 Balance 1000 / 1000 Lab / Micro Data Result Diagrams: 08/11/21 01:22 08/11/21 01:22 Labs: Laboratory Results - last 24 hr 08/11/21 01:22: WBC 3.9 L, RBC 4.34, Hgb 11.1 L, Hct 34.0 L, MCV 78.3 L, MCH 25.6 L, MCHC 32.6, RDW Std Deviation 39.7, RDW Coeff of Luis 14.0, Plt Count 326, MPV 8.5, Immature Gran % (Auto) 0.300, Neut % (Auto) 24.6 L, Lymph % (Auto) 49.6 H, [place] % (Auto) 15.6 H, Eos % (Auto) 9.1 H, Baso % (Auto) 0.8, Absolute Neuts (auto) 1.0 L, Absolute Lymphs (auto) 1.91, Nucleated RBC % 0, Differential Comment SCANNED, Atypical Lymphocytes RARE 08/11/21 01:22: D-Dimer Quant (PE/DVT) 0.55 H* 08/11/21 01:22: Sodium 141, Potassium 3.8, Chloride 108 H, Carbon Dioxide 28.0, Anion Gap 5, BUN 12, Creatinine 0.76, Estim Creat Clear Calc 108.69, Est GFR (MDRD) Af Amer 121, Est GFR (MDRD) Non-Af 100, BUN/Creatinine Ratio 15.7, Glucose 115 H, Calcium 8.7, Troponin I High Sens 216 H* 08/11/21 01:22: PT 13.6, INR 1.1, APTT 35.0 08/11/21 03:30: Troponin I High Sens 239 H* 08/11/21 05:35: Troponin I High Sens 287 H*, C-React Prot High Sens 40.10 H Micro: Microbiology 08/11/21 05:38 Nasal Secretion SARS-CoV-2 Antigen (Rapid) - Final Cardiology Labs/Tests 08/11/21 01:22: WBC 3.9 L, RBC 4.34, Hgb 11.1 L, Hct 34.0 L, MCV 78.3 L, MCH 25.6 L, MCHC 32.6, Plt Count 326, MPV 8.5, Immature Gran % (Auto) 0.300, Neut % (Auto) 24.6 L, Lymph % (Auto) 49.6 H, [place] % (Auto) 15.6 H, Eos % (Auto) 9.1 H, Baso % (Auto) 0.8, Absolute Neuts (auto) 1.0 L, Nucleated RBC % 0 08/11/21 01:22: D-Dimer Quant (PE/DVT) 0.55 H* 08/11/21 01:22: Sodium 141, Potassium 3.8, Chloride 108 H, Carbon Dioxide 28.0, Anion Gap 5, BUN 12, Creatinine 0.76, Est GFR (MDRD) Af Amer 121, Est GFR (MDRD) Non-Af 100, BUN/Creatinine Ratio 15.7, Glucose 115 H, Calcium 8.7 08/11/21 01:22: PT 13.6, INR 1.1, APTT 35.0 Rhythm: EKG: Normal sinus rhythm, with no acute changes, subtle MA depression. ECHO: Stress Test: Cardiac Cath: PCI: CT Surgery: Holter monitor: EPS: PPM: CXR: Chest CT Scan: Radiography Diagnostic Testing: Radiology Impression Chest X-Ray 08/11/21 01:39 IMPRESSION: Radiographic findings suggest acute exacerbation of reactive airway disease and/or viral infection. Electronically Signed: Mariana Alfonso MD at 3:01 EDT , Service support , Chest CTA 08/11/21 01:55 IMPRESSION: No CTA demonstrated pulmonary embolism or arterial dissection. Electronically Signed: Mariana Alfonso MD at 3:27 EDT , Service support ,
--- NOTE | 2021-08-11 09:08 | PCS.PANDOC ---
PANDEMIC DOCUMENTATION INITIATED: Date: 06/14/2021 Time: 1900 PANDEMIC CHARTING
[2021-08-11] MEDS: Aspirin E.C. 81 MG Tablet PO (10:19)
[2021-08-11] MEDS: Indomethacin 25 MG Capsule PO ×2 (10:19→13:42)
[2021-08-11 10:47] LABS: Troponin-I HS 405 pg/mL (3.0-54.0)
--- NOTE | 2021-08-11 12:55 | EKG12_ITS ---
Test Reason : Blood Pressure : / mmHG Vent. Rate : 078 BPM Atrial Rate : 078 BPM P-R Int : 132 ms QRS Dur : 078 ms QT Int : 412 ms P-R-T Axes : 043 065 040 degrees QTc Int : 469 ms Normal sinus rhythm Normal ECG When compared with ECG of 11-AUG-2021 06:43, MANUAL COMPARISON REQUIRED, DATA IS UNCONFIRMED Confirmed by ALEXANDER CINTRON, SILVIA ([id number]), assignment desk editor KEYANA ANDREWS ([id number]) on 08/17/2021 9:00:54 AM Referred By: CASSANDRA Confirmed By:SILVIA MUNOZ MD
--- NOTE | 2021-08-11 13:20 | PCM.DC ---
Discharge Instructions Diet Discharge Diet: No restrictions Activity Discharge Activity: Return to Normal Activity Dressing / Incision Call your doctor if you observe: Shortness of breath, Dizziness and Chest pain Follow Up Care Test Results: Test results from this visit will be discussed in further detail at your follow-up appointment, if applicable. Discharge Plan Admission Admit Date/Time: 08/11/21 05:40 Primary Reason for Your Visit: Pericarditis Attending Provider: Mary Meléndez Primary Care Provider: Damion Rodriguez Consulting Providers: Axel Marlow Discharge Orders/Prescriptions Prescriptions: New indomethacin 25 mg Capsule 25 mg PO TIDCM 7 Days Qty: 21 RF: 0 omeprazole 20 mg capsule,delayed release(DR/EC) 20 mg PO DAILY Qty: 14 RF: 0 Continued norgestimate-ethinyl estradiol [Sprintec (28)] 0.25-35 mg-mcg tablet 1 tab PO QDAY Qty: 84 RF: 4 Referrals / Follow Up: Axel Marlow MD [STAFF PHYSICIAN] - In 1 Week (Make follow up with PACKING ROOM INSPECTOR or PA) Damion Rodriguez MD [Primary Care Provider] - In 1 Week Disposition Disposition (needs filled in before D/C Order can be placed): Home, Self Care
--- NOTE | 2021-08-11 13:29 | PCM.DC.SUM ---
Documented by User: Annette Mathias NP, HOME SECURITY ALARM INSTALLER-C 08/11/21 13:39 Providers Date of Admission: 08/11/21 Date of Discharge: 08/11/21 Primary Care Physician: Dr. Damion Rodriguez MD Consultations 08/11/21 06:24 Consult: Cardiology Routine Consulting Provider: Axel Marlow Reason for Consult: Chest pain with possible myocarditis EMERGENT Consult: No MD Notified: Yes Date Notified: 08/11/21 Time Notified: 06:30 Method of Notification: Verbal Method of Consult:: In-Person Reason For Visit: VIRAL MYOCARDITIS Diagnosis Discharge Diagnosis (1) Pericarditis: Status: Acute Code(s): I31.9 - Disease of pericardium, unspecified (2) Chest pain: Status: Acute Code(s): R07.9 - Chest pain, unspecified Qualifiers: Chest pain type: unspecified Qualified Code(s): R07.9 - Chest pain, unspecified Medications at Discharge Home Medications norgestimate 0.25 mg-ethinyl estradiol 35 mcg tablet 1 tab PO QDAY #84 tab 09/21/20 indomethacin 25 mg PO TIDCM 7 Days #21 cap 08/11/21 omeprazole 20 mg PO DAILY #14 cap 08/11/21 Hospital Course Operations None Procedures 2-D Echocardiogram Summary of Care Provided Minutes Spent on Discharge: 35 Hospital Course: Patient is a 20-year-old female admitted 08/11/2021 due to chest pain. 1. Acute viral pericarditis-cardiology consulted. Underwent echocardiogram which demonstrated an EF of 60%, trivial pericardial effusion. Discharged on indomethacin 25 mg 3 times daily for 1 week along with PPI for GI prophylaxis. ESR pending. CRP elevated. CTA without PE or dissection. Covid negative. Patient tested for mono approximately 1 month prior on 07/07/2021. Follow-up with PCP and cardiology in 1 week. 2. Elevated troponin-secondary to #1. 3. Recent mono-positive test 07/07/2021. Patient seen and examined prior to discharge. Physical assessment as noted below. Patient is stable for discharge with follow up recommendations as noted above. This patient was seen by JOEL Weir under the supervision of Dr. Meléndez. Physical Exam Const alert, oriented x3 and no apparent distress Orientation / Consciousness: awake, oriented to person, oriented to place and oriented to time HEENT normocephalic and moist oral mucous membranes Eyes PERRL, EOMs intact bilaterally and conjunctivae normal Neck no lymphadenopathy Resp normal respiratory effort and clear to auscultation bilaterally Cardio regular rate, regular rhythm and no murmurs Peripheral Pulses: pulses 2+ throughout GI normal to inspection, nondistended, normoactive bowel sounds, non-tender and non-distended Extremity normal to inspection Skin no rashes or lesions noted Lesions: no lesions Rashes: no rashes Trauma: no lacerations or abrasions Neuro CN's II-XII intact bilaterally, no focal motor deficits, no sensory deficits noted and deep tendon reflexes 2+ bilaterally Psych mental status grossly normal and affect normal Weight / BMI Weight Weight: 177 lb 4.026 oz Body Mass Index (BMI) 28.5 ABG / Lab / Microbiology Data Result Diagrams: 08/11/21 01:22 08/11/21 01:22 Laboratory: Laboratory Results - last 24 hr 08/11/21 01:22: WBC 3.9 L, RBC 4.34, Hgb 11.1 L, Hct 34.0 L, MCV 78.3 L, MCH 25.6 L, MCHC 32.6, RDW Std Deviation 39.7, RDW Coeff of Luis 14.0, Plt Count 326, MPV 8.5, Immature Gran % (Auto) 0.300, Neut % (Auto) 24.6 L, Lymph % (Auto) 49.6 H, [place] % (Auto) 15.6 H, Eos % (Auto) 9.1 H, Baso % (Auto) 0.8, Absolute Neuts (auto) 1.0 L, Absolute Lymphs (auto) 1.91, Nucleated RBC % 0, Differential Comment SCANNED, Atypical Lymphocytes RARE 08/11/21 01:22: D-Dimer Quant (PE/DVT) 0.55 H* 08/11/21 01:22: Sodium 141, Potassium 3.8, Chloride 108 H, Carbon Dioxide 28.0, Anion Gap 5, BUN 12, Creatinine 0.76, Estim Creat Clear Calc 108.69, Est GFR (MDRD) Af Amer 121, Est GFR (MDRD) Non-Af 100, BUN/Creatinine Ratio 15.7, Glucose 115 H, Calcium 8.7, Troponin I High Sens 216 H* 08/11/21 01:22: PT 13.6, INR 1.1, APTT 35.0 08/11/21 03:30: Troponin I High Sens 239 H* 08/11/21 05:35: Troponin I High Sens 287 H*, C-React Prot High Sens 40.10 H 08/11/21 10:14: Troponin I High Sens 405 H* Microbiology: Microbiology 08/11/21 05:38 Nasal Secretion SARS-CoV-2 Antigen (Rapid) - Final Radiography Diagnostic Testing: Radiology Impression Chest X-Ray 08/11/21 01:39 IMPRESSION: Radiographic findings suggest acute exacerbation of reactive airway disease and/or viral infection. Electronically Signed: Mariana Alfonso MD at 3:01 EDT , Service support , Chest CTA 08/11/21 01:55 IMPRESSION: No CTA demonstrated pulmonary embolism or arterial dissection. Electronically Signed: Mariana Alfonso MD at 3:27 EDT , Service support , Echocardiogram 08/11/21 06:24 Interpretation Summary Normal LV size. Left ventricular systolic function is normal. The estimated ejection fraction is 60 %. Trivial pericardial effusion. Normal diastology for age. Ordering Physician: Keanu Perez Referring Physician: Damion Rodriguez Performed By: Rojelio Zhu RCS D/C Instructions Discharge Diet: No restrictions Call your doctor if you observe: Shortness of breath, Dizziness and Chest pain Meaningful Use Info Meaningful Use Diagnoses (Choose all that apply): None applicable Discharge Plan Admission Admit Date/Time: 08/11/21 05:40 Primary Reason for Your Visit: Pericarditis Attending Provider: Mary Meléndez Primary Care Provider: Damion Rodriguez Consulting Providers: Axel Marlow Instructions Patient Instructions: Pericarditis Additional Instructions / Restrictions: Patient Problems: Altered Health Status related to Hospitalization Patient Goals: *Optimal Level of Health *Keep Appointments *Medication Compliance *Remain Safe Discharge Orders/Prescriptions Prescriptions: New indomethacin 25 mg Capsule 25 mg PO TIDCM 7 Days Qty: 21 RF: 0 omeprazole 20 mg capsule,delayed release(DR/EC) 20 mg PO DAILY Qty: 14 RF: 0 Continued norgestimate-ethinyl estradiol [Sprintec (28)] 0.25-35 mg-mcg tablet 1 tab PO QDAY Qty: 84 RF: 4 Referrals / Follow Up: Axel Marlow MD [STAFF PHYSICIAN] - In 1 Week (Make follow up with HOME SECURITY ALARM INSTALLER or PA) Damion Rodriguez MD [Primary Care Provider] - In 1 Week Disposition Disposition (needs filled in before D/C Order can be placed): Home, Self Care Documented by User: Dr. Mary Meléndez MD 08/11/21 18:00 Providers Date of Admission: 08/11/21 Reason For Visit: VIRAL MYOCARDITIS Medications at Discharge Home Medications norgestimate 0.25 mg-ethinyl estradiol 35 mcg tablet 1 tab PO QDAY #84 tab 09/21/20 indomethacin 25 mg PO TIDCM 7 Days #21 cap 08/11/21 omeprazole 20 mg PO DAILY #14 cap 08/11/21 ABG / Lab / Microbiology Data Result Diagrams: 08/11/21 01:22 08/11/21 01:22 Discharge Plan Admission Admit Date/Time: 08/11/21 05:40 Primary Reason for Your Visit: Pericarditis Attending Provider: Mary Meléndez Primary Care Provider: Damion Rodriguez Consulting Providers: Axel Marlow Instructions Patient Instructions: Pericarditis Additional Instructions / Restrictions: Patient Problems: Altered Health Status related to Hospitalization Patient Goals: *Optimal Level of Health *Keep Appointments *Medication Compliance *Remain Safe Discharge Orders/Prescriptions Prescriptions: New indomethacin 25 mg Capsule 25 mg PO TIDCM 7 Days Qty: 21 RF: 0 omeprazole 20 mg capsule,delayed release(DR/EC) 20 mg PO DAILY Qty: 14 RF: 0 Continued norgestimate-ethinyl estradiol [Sprintec (28)] 0.25-35 mg-mcg tablet 1 tab PO QDAY Qty: 84 RF: 4 Referrals / Follow Up: Axel Marlow MD [STAFF PHYSICIAN] - In 1 Week (Make follow up with HOME SECURITY ALARM INSTALLER or PA) Damion Rodriguez MD [Primary Care Provider] - In 1 Week Disposition Disposition (needs filled in before D/C Order can be placed): Home, Self Care Charges/Coding Addendum Addendum: This patient was seen in conjunction with Annette Mathias. I have independently interviewed and examined the patient and reviewed pertinent historical, laboratory, and other data. I have reviewed her note and concur with her documentation 80-year-old female with no significant past medical history who presented left-sided chest pain radiated to her neck and left side of the head. Chest pain was on and off for some days. Patient has history of infectious mononucleosis as well as strep infection. Chest pain is worse with lying flat. Patient's EKG showed subtle AK depression.. Her troponins were elevated as well as D-dimer. Chest x-ray was sizable for viral pattern. CTA of the chest showed no acute PE. Patient's troponin peaked at 405. 2D echo showed normal LV size and function. Trivial pericardial effusion. Cardiology was consulted and recommended starting indomethacin 25 mg 3 times daily, omeprazole 20 mg daily. Patient will be followed up in the outpatient. On the day of discharge, patient was seen and examined. Denied any new complaint. Physical Exam: Gen: Comfortable, not pale, not jaundiced CVS:HS I +II, regular, no murmurs RESP: Diminished at lung bases GI: BS present and normal, soft, nontender, no palpable organs EXT:No edema Visit Charges OBSV E&M: 76123 Observation care discharge
[2021-08-11] MEDS: NORGESTIMATE-ETHINYL ESTRADIOL 1 DOSE.PACK 1 TABLET PO (13:42)
--- NOTE | 2021-08-11 14:03 | PHA.DC.MC ---
Pharmacy Service has performed discharge medication reconciliation and counseling for this patient. 1. INDOMETHACIN 25MG PO TIDCM X 7 DAYS 2. OMEPRAZOLE 20MG PO DAILY X 14 DAYS The patient's discharge medication list was reviewed for discrepancies and discrepancies were resolved. Home Medications norgestimate 0.25 mg-ethinyl estradiol 35 mcg tablet 1 tab PO QDAY #84 tab 09/21/20 indomethacin 25 mg PO TIDCM 7 Days #21 cap 08/11/21 omeprazole 20 mg PO DAILY #14 cap 08/11/21 The patient was counseled on the following discharge medications and changes in medications for homegoing were reviewed. The Reason for Use, instructions for use, and potential side effects were reviewed for all new medications. The patient's questions regarding all of their medications were answered. The patient was able to verbally demonstrate an understanding of their discharge medications.
== END 2021-08-11 13:21 | disposition home or self-care (01) ==
LOC: ED 05:30 → PCU 06:40
PROVIDERS: Internal Medicine Cardiovascular Disease; Admitting Provider Hospitalist; Emergency Provider Emergency Medicine; PCP Family Medicine; Visit Provider Internal Medicine
DX: I30.1 Infective pericarditis (principal); R77.8 Other specified abnormalities of plasma proteins; Z23 Encounter for immunization
CPT/HCPCS: 36415; 71046; 71275; 80048; 84484; 85025; 85379; 85610; 85730; 86141; 87426; 93005; 93306; 96360; 96361; 99218; 99285; J7030; Q9967; 90686; A4216; G0378

== ENCOUNTER → 2021-09-27 | Outpatient (CLI) | payer OTHER, SELFPAY ==
[2021-09-28 21:07] LABS: Chlamydia By Nucleic Acid AMP Negative (Negative)
[2021-09-29 12:06] LABS: Gonococcus By Nucleic Acid AMP Negative (Negative)
== END | disposition home or self-care (01) ==
LOC: LABSPEC 11:38
PROVIDERS: PCP Family Medicine; Visit Provider Nurse Practitioner Women's Health
DX: Z11.3 Encounter for screening for infections with a predominantly sexual mode of transmission (principal)
CPT/HCPCS: 87491; 87591

== ENCOUNTER → 2021-12-15 20:28 | Outpatient (CLI) | payer OTHER, SELFPAY ==
[2021-12-15 20:32] LABS: Mucous, Urine 0 SEEN /hpf (<or=2+); Red Blood Cells-Urine 0 SEEN /hpf (0-5)
[2021-12-15 20:53] LABS: Color, Urine Yellow (Yellow); Glucose, Dipstick Normal (Normal); Ketone-Dipstick 5 mg/dl (Negative); Leukocyte Esterase-Dipstick 25 /ul (Negative); Nitrite-Dipstick Negative (Negative); Occult Blood-Urine Negative /ul (Negative); Protein-Dipstick Negative (Negative); Specific Gravity, Urine 1.025 (1.002-1.030); Urine Bilirubin Dipstick Negative (Negative); Urine Clarity Clear (Clear); Urine Urobilinogen Normal (Normal)
[2021-12-15 21:00] LABS: Bacteria 1+ /hpf (None Seen); Squamous Epithelial Cells - UA 0-5 SEEN /hpf (5-10); White Blood Cells 0-5 SEEN /hpf (0-5)
[2021-12-15 21:02] LABS: Protein, Urine (Random) 18.3 mg/dL (<11.9); Protein:Creat Ratio 71 mg/g CRE (0-200)
[2021-12-15 21:07] LABS: Albumin, Serum 3.5 g/dL (3.2-5.0); BUN 12 mg/dL (7-18); BUN/Creat Ratio 14.1 RATIO (10-20); Calcium,Total 8.9 mg/dL (8.5-10.1); Chloride 108 mmol/L (98-107); Creatinine, Serum 0.85 mg/dL (0.55-1.02); EST Glomerular Filtration Rate 88 mL/min (>60); Est Glom Filt Rate - Afr Amer 106 mL/min (>60); Glucose 99 mg/dL (74-106); Phosphorus 2.6 mg/dL (2.5-4.9); Potassium 3.9 mmol/L (3.5-5.1); Sodium Level 140 mmol/L (136-145)
== END ==
PROVIDERS: PCP Family Medicine
DX: Z13.89 Encounter for screening for other disorder (principal)
CPT/HCPCS: 36415; 80069; 81001; 82570; 84156

== ENCOUNTER 2022-07-29 14:05 | Outpatient (CLI) | payer OTHER, SELFPAY ==
[2022-07-29 14:46] LABS: Ferritin 6 ng/mL (8-252)
== END 2022-07-29 23:59 | disposition home or self-care (01) ==
LOC: MFPLAB 14:07
PROVIDERS: PCP Family Medicine; Referring Provider Family Medicine; Visit Provider Family Medicine
DX: E61.1 Iron deficiency (principal)
CPT/HCPCS: 82728

== ENCOUNTER → 2022-10-06 | Outpatient (CLI) | payer OTHER, SELFPAY ==
[2022-10-06 15:03] LABS: Absolute Lymphocyte Count 1.84 X10^3/uL (0.83-4.51); Absolute Neutrophil Count 2.8 X10^3/uL (2.0-7.7); Basophil# 0.02 X10^3/uL; Basophil% 0.4 % (0-1); Eosinophil# 0.13 X10^3/uL; Eosinophils% 2.5 % (0-5); Hematocrit 38.4 % (37-47); Hemoglobin 12.1 g/dL (12.0-15.0); Lymphocyte # 1.84 X10^3/ul (0.83-4.51); Mean Corp Hgb Conc 31.5 g/dL (32-36); Mean Corpuscular Hgb 25.5 pg (27.0-32.0); Mean Corpuscular Volume 80.8 fL (81-99); Monocyte# 0.47 X10^3/uL; Monocyte% 8.9 % (0-10); NRBC Flagged by Analyzer 0 % (0-5); Neutrophil # 2.78 X10^3/uL (2.7-7.7); Neutrophil % 52.8 % (47-70); Platelet Count 391 K/mm3 (150-450); RBC Distribution Width CV 16.2 % (11.6-14.6); RBC Distribution Width SD 47.8 fl (35.1-43.9); Red Blood Count 4.75 M/mm3 (4.2-5.4); White Blood Count 5.3 K/mm3 (4.4-11.0)
[2022-10-06 15:42] LABS: Ferritin 30 ng/mL (8-252)
[2022-10-15 14:59] LABS: HPV Reflexed? NOT INDICATED
== END | disposition home or self-care (01) ==
PROVIDERS: PCP Family Medicine; Referring Provider Obstetrics & Gynecology; Visit Provider Obstetrics & Gynecology
DX: Z12.4 Encounter for screening for malignant neoplasm of cervix (principal); E61.1 Iron deficiency
CPT/HCPCS: 36415; 82728; 85025; 88175; G0145

== ENCOUNTER → 2022-12-27 | Outpatient (CLI) | payer OTHER, SELFPAY ==
[2022-12-27 16:18] LABS: Albumin, Serum 3.3 g/dL (3.2-5.0); BUN 13 mg/dL (7-18); BUN/Creat Ratio 15.2 RATIO (10-20); Calcium,Total 8.9 mg/dL (8.5-10.1); Chloride 107 mmol/L (98-107); Creatinine, Serum 0.85 mg/dL (0.55-1.02); EST Glomerular Filtration Rate 87 mL/min (>60); Est Glom Filt Rate - Afr Amer 105 mL/min (>60); Glucose 132 mg/dL (74-106); Phosphorus 2.5 mg/dL (2.5-4.9); Potassium 3.9 mmol/L (3.5-5.1); Sodium Level 140 mmol/L (136-145)
[2022-12-27 16:24] LABS: Bacteria 0 SEEN /hpf (None Seen); Red Blood Cells-Urine 0 SEEN /hpf (0-5); White Blood Cells 0 SEEN /hpf (0-5)
[2022-12-27 16:33] LABS: Color, Urine Yellow (Yellow); Glucose, Dipstick Normal (Normal); Ketone-Dipstick Negative (Negative); Leukocyte Esterase-Dipstick Negative /ul (Negative); Nitrite-Dipstick Negative (Negative); Occult Blood-Urine Negative /ul (Negative); Protein-Dipstick 15 mg/dl (Negative); Specific Gravity, Urine 1.015 (1.002-1.030); Urine Bilirubin Dipstick Negative (Negative); Urine Clarity Clear (Clear); Urine Urobilinogen Normal (Normal); Urine pH 6.5 (5.0 - 8.0)
[2022-12-27 16:45] LABS: Protein, Urine (Random) 20.2 mg/dL (<11.9)
[2022-12-27 16:51] LABS: Mucous, Urine 1+ /hpf (<or=2+); Squamous Epithelial Cells - UA 0-5 SEEN /hpf (5-10)
== END | disposition home or self-care (01) ==
LOC: BIMLAB 14:38
PROVIDERS: PCP Family Medicine
DX: Z13.89 Encounter for screening for other disorder (principal); Z82.71 Family history of polycystic kidney
CPT/HCPCS: 36415; 80069; 81001; 82570; 84156

== ENCOUNTER → 2023-01-06 | Outpatient (CLI) | payer OTHER, SELFPAY ==
--- NOTE | 2023-01-06 14:59 | US_ITS ---
STUDY: RENAL ULTRASOUND - COMPLETE REASON FOR EXAM: Female, 22 years old. Family history of polycystic kidney disease. TECHNIQUE: Ultrasound evaluation of the kidneys was performed with real-time and static urbano-scale imaging. COMPARISON: January 25, 2021. FINDINGS: RIGHT KIDNEY: Normal location of the right kidney, which is normal in size. The right kidney measures 11.6 cm. There is a normal cortex of the right kidney. The renal cortex measures 2.3 cm. There is no right renal mass or cyst. There are no right renal calculi. There is no right hydronephrosis. DISTAL RIGHT URETER: There is non-visualization of the distal right ureter. There is no demonstrated right ureterovesical junction calculus. There is a visualized right ureteral jet. LEFT KIDNEY: Normal location of the left kidney, which is normal in size. The left kidney measures 10.6 cm. There is a normal cortex of the left kidney. The renal cortex measures 1.4 cm. There is no left renal mass or cyst. There are no left renal calculi. There is no left hydronephrosis. DISTAL LEFT URETER: There is non-visualization of the distal left ureter. There is no demonstrated left ureterovesical junction calculus. There is a visualized left ureteral jet. BLADDER: The distended urinary bladder has a volume of 433 ml. There is a normal wall thickness of the distended urinary bladder. There is no demonstrated mass within the urinary bladder. There are no demonstrated bladder calculi. US/Kidney and Bladder IMPRESSION: Normal ultrasound of the kidneys and urinary bladder. No major interval change when compared with the previous examination. Electronically Signed: Lobo Oh DO at 23:[address] [facility] ,
== END | disposition home or self-care (01) ==
LOC: US 14:58
PROVIDERS: PCP Family Medicine
DX: Z13.89 Encounter for screening for other disorder (principal); Z82.71 Family history of polycystic kidney
CPT/HCPCS: 76770

== ENCOUNTER → 2023-01-07 | Outpatient (CLI) | payer OTHER, SELFPAY ==
[2023-01-07 19:35] LABS: 24 Hour Urine Protein 84.6 mg/24HR (<150 MG/24HR); 24HR. UA Prot. Total Volume 1510 mL; 24HR. Urine Creatinine 1.59 g/24 HR (0.70-1.90); Urine Protein (24 Hour) < 6.0 mg/dL (<11.9)
== END | disposition home or self-care (01) ==
PROVIDERS: PCP Family Medicine
DX: R80.9 Proteinuria, unspecified (principal)
CPT/HCPCS: 81050; 82570; 84156

== ENCOUNTER → 2023-05-11 | Outpatient (CLI) | payer OTHER, SELFPAY | END | disposition home or self-care (01) | PROVIDERS: PCP Family Medicine; Referring Provider Family Medicine; Visit Provider Family Medicine | DX: J02.9 Acute pharyngitis, unspecified (principal) | CPT/HCPCS: 87070 ==

== ENCOUNTER → 2023-12-06 | Outpatient (CLI) | payer OTHER, SELFPAY ==
[2023-12-06 23:22] LABS: Bacteria 0 SEEN /hpf (None Seen); Mucous, Urine 0 SEEN /hpf (<or=2+); Red Blood Cells-Urine 0 SEEN /hpf (0-5)
[2023-12-06 23:47] LABS: Color, Urine Yellow (Yellow); Glucose, Dipstick Normal (Normal); Ketone-Dipstick Negative (Negative); Leukocyte Esterase-Dipstick 100 /ul (Negative); Nitrite-Dipstick Negative (Negative); Occult Blood-Urine Negative /ul (Negative); Protein-Dipstick Negative (Negative); Urine Bilirubin Dipstick Negative (Negative); Urine Clarity Clear (Clear); Urine Urobilinogen Normal (Normal)
[2023-12-06 23:53] LABS: Albumin, Serum 3.6 g/dL (3.2-5.0); BUN 14 mg/dL (7-18); BUN/Creat Ratio 19.6 RATIO (10-20); Calcium,Total 9.4 mg/dL (8.5-10.1); Chloride 109 mmol/L (98-107); Creatinine, Serum 0.71 mg/dL (0.55-1.02); EST Glomerular Filtration Rate 106 mL/min (>60); Est Glom Filt Rate - Afr Amer 128 mL/min (>60); Glucose 99 mg/dL (74-106); Phosphorus 3.2 mg/dL (2.5-4.9); Potassium 3.8 mmol/L (3.5-5.1); Sodium Level 138 mmol/L (136-145)
[2023-12-06 23:54] LABS: Protein, Urine (Random) 9.8 mg/dL (<11.9); Protein:Creat Ratio 117 mg/g CRE (0-200)
[2023-12-06 23:57] LABS: Squamous Epithelial Cells - UA 5-10 SEEN /hpf (5-10); White Blood Cells 0-5 SEEN /hpf (0-5)
== END | disposition home or self-care (01) ==
PROVIDERS: PCP Family Medicine
DX: R80.9 Proteinuria, unspecified (principal); Z82.71 Family history of polycystic kidney
CPT/HCPCS: 36415; 80069; 81001; 82570; 84156

== ENCOUNTER → 2024-10-10 | Outpatient (CLI) | payer OTHER, SELFPAY ==
[2024-10-10 16:20] LABS: HIV - WCH Non-Reactive (Nonreactive); Hepatitis C Antibody Non-Reactive (Nonreactive); Syphilis Antibodies Non-reactive
[2024-10-14 20:07] LABS: Chlamydia By Nucleic Acid AMP Negative (Negative); Gonococcus By Nucleic Acid AMP Negative (Negative)
== END | disposition home or self-care (01) ==
LOC: BWCLAB 13:51
PROVIDERS: PCP Family Medicine; Referring Provider Nurse Practitioner Women's Health; Visit Provider Nurse Practitioner Women's Health
DX: Z20.2 Contact with and (suspected) exposure to infections with a predominantly sexual mode of transmission (principal)
CPT/HCPCS: 36415; 86695; 86696; 86703; 86780; 86803; 87491; 87591

== ENCOUNTER → 2025-10-21 | Outpatient (CLI) | payer OTHER, SELFPAY ==
--- OUTSIDE RECORDS SUMMARY | 2025-10-21 17:53 | XMS RPT_ITS | CCD ---
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 Damion Rodriguez Primary Care Provider [phone] Dr. Damion Rodriguez Referring Provider [phone] Diana Person Attending Provider Dr. Damion Rodriguez Primary Care Provider Dr. Damion Rodriguez Referring Provider [phone] Lea JOSE, JOEL Shrestha Attending Provider [phone] Lea COMMUNITY ENGAGEMENT COORDINATOR, Henrietta Attending Unavailable Lea COMMUNITY ENGAGEMENT COORDINATORHenrietta Referring Unavailable Rodriguez, Damion Primary Care Unavailable Rodriguez, Damion Referring Unavailable Rodriguez, Damion Primary Care Unavailable Camila Simpson Attending Unavailable Assessment, Health Risk Attending Unavaila tiffany Rodriguez, Damion Primary Care Unavailable Rodriguez, Damion Referring Unavailable Shahab Montenegro Attending Unavailable Rodriguez, Damion Primary Care Unavailable Rodriguez, Damion Primary Care Unavailable Rodriguez, Damion Referring Unavailable Henrietta Tate NP Attending Unavailable Allergies Allergy Classification Reported Allergen(s) Allergy Type Date of Onset Reaction(s) Facility (6 sources) Penicillins Allergy to substance 2 Family history of reaction [facility] (1 source) Penicillins Drug allergy (disorder) [address] [facility] Repository Medications Current Medications Medication Drug Class(es) Dates Sig (Normalized) Sig (Original) apple cider vinegar 600 mg oral capsule (6 sources) Start: 10-06-2022 Apple Cider Vinegar Active MG PO October 06, 2022 12:00am Norgestimate-Ethin yl Estradiol (20 sources) Progestin, Estrogen Start: 10-06-2022 take 1 tablet by mouth once daily Norgestimate-Ethi nyl Estradiol (Sprintec (28)) 0.25-35 mg-mcg tablet Active 1 TABLET PO daily October 06, 2022 1:06pm Start: 10-06-2022 take 1 tablet by trisha th once daily Norgestimate-Ethinyl Estradiol (Sprintec (28)) 0.25-35 mg-mcg tablet Active 1 TABLET PO daily 84 October 06, 2022 12:06pm Start: 09-27-2021 End: 10-06-2022 take 1 tablet by mouth once daily Norgestimate-Ethinyl Estradiol (Sprintec (28)) 0.25-35 mg-mcg tablet Discontinued 1 TABLET PO daily September 27, 2021 11:59am October 06, 2022 1:06pm Start: 09-27-2021 End: 10-06-2022 take 1 tablet by mouth once daily Norgestimate-Ethinyl Estradiol (Sprintec (28)) 0.25-35 mg-mcg tablet Discontinued 1 TABLET PO daily September 27, 2021 10:59am October 06, 2022 12:06pm Start: 09-21-2020 End: 09-27-2021 take 1 tablet by mouth once daily Norgestimate-Ethinyl Estradiol (Sprintec (28)) 0.25-35 mg-mcg tablet Discontinued 1 TABLET PO daily September 21, 2020 11:13am September 27, 2021 11:59am Start: 09-21-2020 End: 09-27-2021 take 1 tablet by mouth once daily Norgestimate-Ethinyl Estradiol (Sprintec (28)) 0.25-35 mg-mcg tablet Discontinued 1 TABLET PO daily September 21, 2020 10:13am September 27, 2021 10:59am Start: 09-18-2019 End: 09-21-2020 take 1 tablet by mouth once daily Norgestimate-Ethinyl Estradiol (Sprintec (28)) 0.25-35 mg-mcg tablet Discontinued 1 TABLET PO daily September 18, 2019 11:13am September 21, 2020 11:13am Start: 09-18-2019 End: 09-21-2020 take 1 tablet by mouth once daily Norgestimate-Ethinyl Estradiol (Sprintec (28)) 0.25-35 mg-mcg tablet Discontinued 1 TABLET PO daily September 18, 2019 10:13am September 21, 2020 10:13am Start: 09-17-2018 End: 09-18-2019 take 1 tablet by mouth once daily Norgestimate-Ethinyl Estradiol (Sprintec (28)) 0.25-35 mg-mcg tablet Discontinued 1 TABLET PO daily September 17, 2018 11:09am September 18, 2019 11:13am Start: 09-17-2018 End: 09-18-2019 take 1 tablet by mouth once daily Norgestimate-Ethinyl Estradiol (Sprintec (28)) 0.25-35 mg-mcg tablet Discontinued 1 TABLET PO daily September 17, 2018 10:09am September 18, 2019 10:13am Start: 06-12-2018 End: 09-17-2018 take 1 tablet by mouth once daily Norgestimate-Ethinyl Estradiol (Sprintec (28)) 0.25-35 mg-mcg tablet Discontinued 1 TABLET PO daily June 12, 2018 12:00am September 17, 2018 11:09am Start: 06-12-2018 End: 09-17-2018 take 1 tablet by mouth once daily Norgestimate-Ethinyl Estradiol (Sprintec (28)) 0.25-35 mg-mcg tablet Discontinued 1 TABLET PO daily June 11, 2018 11:00pm September 17, 2018 10:09am ferrous sulfate 134 mg oral tablet (6 sources) Start: 10-06-2022 take 27 mg by mouth once daily Ferrous Sulfate Active 27 MG PO DAILY October 06, 2022 12:00am Completed/Discontinued Medications Medication Drug Class(es) Dates Sig (Normalized) Sig (Original) indomethacin 25 mg oral capsule (6 sources) Nonsteroidal Anti-inflammatory Drug Start: 08-11-2021 End: 08-20-2021 take 25 mg by mouth three times daily at mealtime Indomethacin Discontinued 25 MG PO 3 TIMES DAILY WITH MEALS 19 05August 10, 2021 11:00pm August 20, 2021 2:36pm omeprazole 20 mg delayed release oral capsule (6 sources) Proton Pump Inhibitor Start: 08-11-2021 End: 09-27-2021 take 20 mg by mouth once daily Omeprazole Discontinued 20 MG PO DAILY August 10, 2021 11:00pm September 27, 2021 10:50am Problems Active Problems Problem Classification Problem Date Documented Da te Episodic/Chronic Nonspecific chest pain (6 sources) Chest pain; Translations: [Chest pain, unspecified] 08-19-2021 Episodic Other hematologic conditions (6 sources) Raised cardiac enzyme or marker; Translations: [Other specified abnormalities of plasma proteins] 08-19-2021 Episodic Tameka-; endo-; and myocarditis; cardiomyopathy (except that caused by tuberculosis or sexually transmitted disease) (6 sources) Myocarditis; Translations: [Myocarditis, unspecified] 08-19-2021 Chronic Tameka-; endo-; and myocarditis; cardiomyopathy (except that caused by tuberculosis or sexually transmitted disease) (6 sources) Pericarditis; Translations: [Disease of pericardium, unspecified] 11-23-2021 Episodic Past or Other Problems Problem Classification Problem Date Documented Date Episodic/Chronic Immunizations and screening for infectious disease (1 source) Contact with and (suspected) exposure to infections with a predominantly sexual mode of transmission; Translations: [Contact with and (suspected) exposure to infections with a predominantly sexual mode of transmission] Onset: 11-18-2024 Episodic Results Test Name Value Interpretation Reference Range Facil ity Registered Medical Assistant Office Visit Reporton 09-03-2025 Registered Medical Assistant Office Visit Report [facility] [address], [address] [place] [address] OFFICE VISIT Date of Service: 09/03/25 MR#: [id number] Acct: [id number] Name: FAISAL CROCKETT Rep #: [id number] 2 : 2000 Provider: JOEL Darling Age/Sex: 24/F Location: [facility] Status: Signed Intake Vital Signs 10/10/24 11:29 09/03/25 08:26 09/03/25 08:27 Height 5 ft 6 in 5 ft 6 in 5 ft 6 in Weight: 208 lb BMI 33.5 BP 116/77 Intake Visit Reasons: problem Chief Complaint: breast pain, redness Technical Service Rep Required: No Is patient in pain?: No Allergies Penicillins Allergy (Mild, Verified 09/03/25 08:25) Family history of reaction Medications ???Medication ???Instructions ???Recorded ???Confirmed ???Type norgestimate 0.25 mg-ethinyl 1 tab PO QDAY #84 tabs 12/12/24 11 /05/25 Rx estradiol 0.035 mg tablet (Sprintec (28)) doxycycline hyclate 100 mg capsule 100 mg PO BID 7 days #14 caps 09/03/25 Rx Is last menstrual period known: Yes Last Menstrual Period: 08/28/25 Post menopausal: No Patient : No : No Control Method: ocp [facility] Medical History Mononucleosis Pericarditis Family History (Updated 09/03/25 @ 08:26 by Kim Vance) Mother Kidney failure Heart disease Polycystic kidney disease Father Diabetes Grandmother Diabetes Breast cancer Grandmother Diabetes Social History adopted: No number of children: 0 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 [employer] T[employer] HPI problem Details: FAISAL CROCKETT is a 24 year old who presents for breast pain/lesion. She noticed this last night; started as a blood blister. Went to bed and work up with surrounding erythema, tenderness, and the area has turned into a lesion with a white center. Denies fevers, chills. No other symptoms noted. Looked for possible bite source; nothing found. Female Reproductive History Last Menstrual Period: 08/28/25 History 0 Elective abortions Hx Para Spontaneous abortions Hx # Term Pregnancies Ectopic pregnancies Hx # Pregnancies Multiple births # of living children ROS Const Constitutional: Reports system reviewed and no additional complaints, except as documented : Reports system reviewed and no additional complaints, except as documented; Denies nipple discharge Skin Skin/Breast: Reports as per HPI, breast pain (localized) and breast skin changes; Denies breast mass or nipple discharge Psych Psych: Reports system reviewed and no additional complaints, except as documented Exam Const General: cooperative and no acute distress Orientation: oriented x3 HENMT Head: normal to inspection Neck Neck: normal visual inspection Chest Breast inspection: normal inspection of the breasts, normal inspection of the axillae and Other (left breast; 3mm lesion with white center; surrounding erythema) Breast palpation: normal palpation of the breasts and normal palpation of the axillae Resp Effort Inspection: normal respiratory effort Coding Level of Care Code Established Pt Off vis,est,level 3 Patient Type Established Diagnoses Skin lesion of breast L98.8 Assessment and Plan Assessment and Plan (1) Skin lesion of breast: Status: Acute Plan: Treat as infectious; if no resolve in 1 week then proceed with ultrasound. Call office sooner if symptoms worsen prior. Medications: New doxycycline hyclate 100 mg PO BID 14 caps 0RF 7 days 09/03/25 0843 Date Camila Simpson NP-C Cosigner Signature: Date (if applicable) CC: Normal [facility] CBC, Employeeon 07-23-2025 Absolute Lymph 1.49 X10 3/uL Normal 0.83-4.[address] [facility] Comment on above: Performed By: #### L 100.0200, L500.2900 #### [facility] [address] [place], [place], [id number] Absolute Neut 2.8 X10 3/uL Normal 2.0-7.[address] [facility] Comment on above: Performed By: #### L 100.0200, L500.2900 #### [facility] [address] [place], [address] Basophils/100 WBC (Bld) 0.2 % Normal 0-[address] [facility] Comment on above: Performed By: #### L 100.0200, L500.2900 #### [facility] [address] [place], [address] Eosinophils/100 WBC (Bld) 1.2 % Normal 0-[address] [facility] Comment on above: Performed By: #### L 100.0200, L500.2900 #### [facility] [address] [place], [address] Erythrocyte distribution width (RBC) [Ratio] 14.5 % Normal 11.6-14.[address] [facility] Comment on above: Performed By: #### L 100.0200, L500.2900 #### [facility] [address] [place], [address] Hematocrit (Bld) [Volume fraction] 38.5 % Normal 37-[address] [facility] Comment on above: Performed By: #### L 100.0200, L500.2900 #### [facility] [address] [place], [address] Hemoglobin (Bld) [Mass/Vol] 12.7 g/dL Normal 12.0-15.[address] [facility] Comment on above: Performed By: #### L 100.0200, L500.2900 #### [facility] [address] [place], [address] Lymphocytes/100 WBC (Bld) 30.5 % Normal 19-[address] [facility] Comment on above: Performed By: #### L 100.0200, L500.2900 #### [facility] [address] [place], [address] MCH (RBC) [Entitic mass] 26.9 pg Low 27.0-32.[address] [facility] Comment on above: Performed By: #### L 100.0200, L500.2900 #### [facility] [address] [place], [address] MCHC (RBC) [Mass/Vol] 33.0 g/dL Normal 32-36 [facility] Comment on above: Performed By: #### L 100.0200, L500.2900 #### [facility] [address] [place], [address] MCV (RBC) [Entitic vol] 81.6 fL Normal 81-[address] [facility] Comment on above: Performed By: #### L 100.0200, L500.2900 #### [facility] [address] [place], [address] Monocytes/100 WBC (Bld) 10.0 % Normal 0-[address] [facility] Comment on above: Performed By: #### L 100.0200, L500.2900 #### [facility] [address] [place], [address] Neutrophils/100 WBC (Bld) 57.7 % Normal 47-[address] [facility] Comment on above: Performed By: #### L 100.0200, L500.2900 #### [facility] [address] [place], [address] NRBC # 0.00 10 3/uL Normal 0-[address] [facility] Comment on above: Performed By: #### L 100.0200, L500.2900 #### [facility] [address] [place], [address] Nucleated RBC (Bld) [#/Vol] 0 10*3/uL Normal 0-[address] [facility] Comment on above: Performed By: #### L 100.0200, L500.2900 #### [facility] [address] [place], [address] Platelet mean volume (Bld) [Entitic vol] 9.4 fL Normal 6.2-12.[address] [facility] Comment on above: Performed By: #### L 100.0200, L500.2900 #### [facility] [address] [place], [address] Platelets (Bld) [#/Vol] 341 10*3/uL Normal 150-[address] [facility] Comment on above: Performed By: #### L 100.0200, L500.2900 #### [facility] [address] [place], [address] RBC (Bld) [#/Vol] 4.72 10*6/uL Normal 4.2-5.4 [facility] Comment on above: Performed By: #### L 100.0200, L500.2900 #### [facility] [address] [place], [address] RDW SD 42.3 fl Normal 35.1-43.[address] [facility] Comment on above: Performed By: #### L 100.0200, L500.2900 #### [facility] [address] [place], [address] WBC (Bld) [#/Vol] 4.9 10*3/uL Normal 4.4-11.0 [facility] Comment on above: Performed By: #### L 100.0200, L500.2900 #### [facility] [address] [place], [address] Employee Profileon 5 LDH 159 U/L Normal 84-[address] [facility] Comment on above: Performed By: #### L 100.0200, L500.2900 #### [facility] [address] [place], [address] Phosphate [Mass/Vol] 3.0 mg/dL Normal 2.7-4.5 [facility] Comment on above: Performed By: #### L 100.0200, L500.2900 #### [facility] [address] [place], [address] URIC 5.9 mg/dL Normal 2.6-6.[address] [facility] Comment on above: Result Comment: The drugs N-Acetylcysteine and Metamizole may falsely depress this assay. Performed By: #### L 100.0200, L500.2900 #### 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 Chief Complaint: Annual Allergies Penicillins Allergy (Mild, Verified 10/10/24 11:24) Family history of reaction Office Procedures [facility] Billing Sheet Covid Covid Swab-Rapid: Yes Results POC CEPH COV,FluAB,RSV PCR CEPHEID COVID PCR DETECTED Last Edit by Patrizia Gonsalves MA on 12/03/24 18:11 CEPHEID FLU AB PCR NOT DETECTED FLU A B Last Edit by Patrizia Gonsalves MA on 12/03/24 18:11 CEPHEID RSV PCR NOT DETECTED Last Edit by Patrizia Gonsalves MA on 12/03/24 18:11 Assessment and Plan Assessment and Plan Orders: Orders POC Cepheid Covid, FluAB, RSV 12/03/24 04/30/25 0612 Date Shahab Starkey Signature: Date (if applicable) CC: Normal [facility] Chlamydia/GC ILDA aptimaon CHLAMY,NUC ACID Negative Normal Negative [facility] Comment on above: Performed By: #### L 7000.1800 #### [facility] [address] [place], [place], [id number] GC BY NUC ACID Negative Normal Negative [facility] Comment on above: Result Comment: Perf ormed at: = - [facility] [place], [place] [id number] Overlay Operator: Karrie Bowles MD, Phone: [phone] Performed By: #### L 7000.1800 #### [facility] [address] [place], [place], [id number] HSV 1 AND 2 IgGon 10-14-2024 HSV 1 IgG Normal [facility] Comment on above: Result Comment: RESU LT: NON REACTIVE Please note reference interval change HSV-1 IgG testing performed using the [employer] HSV-1 IgG assay. Performed By: #### L 509.8000, L3890.6300, L3890.6005, L3400.1610 #### [facility] [address] [place], [place], [address] HSV [address] [facility] Comment on above: Result Comment: RESU LT: NON REACTIVE Please note reference interval change Current guidelines and recommendations do not recommend routine screening for HSV-2 in asymptomatic individuals, including those that are . The detection of HSV-2 IgG antibodies in a single sample indicates previous exposure to HSV-2 but does not give information as to the site of HSV infection or the timing of exposure. The predictive value of positive and negative results depends on the population's prevalence and the pretest likelihood of HSV-2. HSV-2 IgG testing performed using the [employer] HSV-2 IgG assay. Performed at: [address] [id number] Overlay Operator: Trevor Pagan PhD, Phone: [phone] Performed By: #### L 509.8000, L3890.6300, L3890.6005, L3400.1610 #### [facility] [address] [place], [address] HIV - WCHon 10-10-2024 HIV Non-Reactive Normal Nonreactive [facility] Comment on above: Order Comment: Reaso n for Exam: std exposure Performed By: #### L 509.8000, L3890.6300, L3890.6005, L3400.1610 #### [facility] [address] [place], [address] Hepatitis C Antibodyon 10-10 Hepatitis C AB Non-Reactive Normal Nonreactive [facility] Comment on above: Order Comment: Reaso n for Exam: std exposure Result Comment: Non Reactive: < 0.8 Equivocal: >/= 0.8 to < 1.0 Reactive: >/= 1.0 The CDC requires that a reactive/equivocal HCV antibody result be sent out for confirmation. HCV Quant by PCR testing. Performed By: #### L 509.8000, L3890.6300, L3890.6005, L3400.1610 #### [facility] [address] [place], [address] L509.8000on 10-10-2024 Syphilis Abs Non-Reactive Normal [facility] Comment on above: Order Comment: Reaso n for Exam: std exposure Performed By: #### L 509.8000, L3890.6300, L3890.6005, L3400.1610 #### [facility] [address] [place], [address] Registered Medical Assistant Office Visit Reporton 10-10-2024 Registered Medical Assistant Office Visit Report [facility] [address], [address] [place] [address] OFFICE VISIT Date of Service: 10/10/24 MR#: [id number] Acct: [id number] Name: FAISAL CROCKETT Rep #: [id number] : 2000 Provider: JOEL bhat Age/Sex: 24/F Location: 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) Chief Complaint: Annual Technical Service Rep Required: No Is patient in pain?: No Allergies Penicillins Allergy (Mild, Verified 10/10/24 11:24) Family history of reaction Medications ???Medication ???Instructions ???Recorded ???Confirmed ???Type norgestimate 0.25 mg-ethinyl 1 tab PO QDAY #84 tabs 10/10/24 10/10/24 Rx estradiol 35 mcg tablet (Sprintec (28)) Is last menstrual period known: Yes Last Menstrual Period: 09/26/24 Post menopausal: No Patient : No : No Control Method: OCP [facility] Medical History Mononucleosis Pericarditis Family History Mother Kidney failure Heart disease Father Diabetes Grandmother Diabetes Grandmother Diabetes Social History Smoking Status: Never smoker alcohol intake: current details: occasionally substance use type: does not use caffeine: Yes what type of physical activity do you participate in: none seatbelt use: always do you feel safe at home: Yes 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 Getting in Jun 2025. Happy with OCP use, did have 1 menses with cramping/will monitor. Has never had STD testing. 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 Last PAP: 2021 History of abnormal PAP: no Last mammogram: age 35-40 Female Reproductive History Last Menstrual Period: 09/26/24 Cycle Length: 21-35 Questions: metorrhagia: No, sexually active: Yes, dyspareunia: No and PCB: No ROS Const Constitutional: Denies fatigue, weight gain or weight loss Cardio Card: Denies chest pain Resp Resp: Denies cough or dyspnea on exertion GI GI: Denies abdominal pain, bloating, change in stool character, constipation or vomiting : Reports as per HPI; Denies difficulty voiding, pelvic pain, urinary frequency, urinary incontinence, urinary urgency, vaginal discharge or vaginal pruritus Exam Const General: cooperative, healthy appearing, no acute distress and well developed Orientation: alert, oriented to person and oriented to place HENWA Head: normal to inspection Neck Neck: normal visual inspection Thyroid: thyroid normal Lymphatic: no lymphadenopathy noted Chest Breast inspection: normal inspection of the breasts and normal inspection of the axillae Breast palpation: normal palpation of the breasts, normal palpation of the axillae and no axillary lymphadenopathy Resp Effort Inspection: normal respiratory effort GI Palpation: soft, no masses and nontender Rectal Exam: deferred External Female Exam: normal external appearance and normal appearance of the urethra Urethra: normal appearance of the urethra and normal palpation Speculum Exam - Vagina: normal appearance of the vagina and normal vaginal discharge Speculum Exam - Cervix: normal appearance of the cervix Bimanual Exam- Vagina Uterus: normal bimanual exam, uterine size normal, uterine shape normal and non-tender Bimanual Exam- Adnexa, other: normal adnexae, no masses, normal and non-tender Pelvic Support: normal Neuro General: patient alert and patient oriented x3 Psych Affect: normal affect Coding Level of Care Code Off vis,est,prev 18-39yrs Diagnoses Encounter for gynecological examination without abnormal finding Z01.419 Gynecological examination findings: abnormal findings ABSENT Family history of polycystic kidney disease Z82.71 Possible exposure to STD Z20.2 Assessment and Plan Assessment and Plan (1) Encounter for routine gynecological examination: Qualifiers: Gynecological examination findings: abnormal findings ABSENT Qualified Code(s): Z01.419 - Encounter for gynecological examination (general) (routine) without abnormal findings (2) Family history of polycystic kidney disease: Status: Acute Comment: mother. (3) Possible exposure to STD: Orders: Orders HSV 1 2 IgG Today Z20.2 - Contact with and (sal[facility] (more content not included)... [facility] 2023 Basophil percentage 0-5 SEEN /hpf 0-5 Wo [facility] Basophil percentage 3.2 mg/dL 2.5-4.9 [facility] Chloride [Moles/Vol] 109 mmol/L 98-107 [facility] Glucose [Mass/Vol] 99 mg/dL 74-106 [facility] Potassium [Moles/Vol] 3.8 mmol/L 3.5-5.1 [facility] Sodium [Moles/Vol] 138 mmol/L 136-145 [facility] Bilirubin Test strip Ql (U)o n 12-06-2023 Bilirubin Ql (U) Negative Negative [facility] Ketones Test strip Ql (U)on 12-06-2023 Ketones Ql (U) Negative Negative [facility] Laboratory - Chemistry and C hemistry - challengeon 12-06-2023 CO2 [Moles/Vol] 27.0 mmol/L 21.0-32.[address] [facility] Urea nitrogen/Creatinine [Mass ratio] 19.6 mg/mg 10-[address] [facility] Mucus LM Ql (Urine sed)on Mucus Ql (Urine sed) 0 SEEN /hpf [facility] Nitrite Test strip Ql (U)on 12-06-2023 Nitrite Ql (U) Negative Negative [facility] No Panel Informationon 12-06 Estimated GFR (MDRD) Amer 128 mL/min >[address] [facility] Comment on above: GFR Calc Estimated GFR (MDRD) Non-Af Amer 106 mL/min >[address] [facility] Comment on above: Non- GFR Calc Urine RBC 0 SEEN /hpf 0-[address] [facility] Protein Test strip Ql (U)on 12-06-2023 Protein Ql (U) Negative Negative [facility] Serum or plasma calcium angelito urement (mass/volume)on 12-06-2023 Calcium [Mass/Vol] 9.4 mg/dL 8.5-10.1 [facility] Serum or plasma creatinine m easurement (mass/volume)on 12-06-2023 Creatinine [Mass/Vol] 0.71 mg/dL 0.55-1.02 [facility] Comment on above: The validity of the calculated GFR & GFRAA in patients over 70 years has not been determined. Clinical correlation is essential. Serum or plasma urea nitroge n measurement (mass/volume)on 12-06-2023 Urea nitrogen [Mass/Vol] 14 mg/dL 7-[address] [facility] Squamous epithelial cells de tection in urine sediment by light microscopyon 12-06-2023 Epithelial cells.squamous LM Ql (Urine sed) 5-10 SEEN /hpf 5-[address] [facility] Thin prep Papanicolaou smear with manual screeningon 12-06-2023 Protein (U) [Mass/Vol] 9.8 mg/dL 0.0-11.8 [facility] Thin prep Papanicolaou smear with manual screening 3.6 g/dL 3.2-5.[address] [facility] Urine blood detectionon RBC Ql (U) Negative Negative [facility] Urine clarityon 12-06-2023 Clarity (U) Clear Clear [facility] Urine color determinationon 12-06-2023 Color (U) Yellow Yellow [facility] Urine creatinine measurement (mass/volume)on 12-06-2023 Creatinine (U) [Mass/Vol] 83.80 mg/dL NO RANGE EST. [facility] Urine glucose detectionon Glucose Ql (U) Normal mg/dl Normal [facility] Urine leukocyte esterase det ection by dipstickon 12-06-2023 Leukocyte esterase Test strip Ql (U) 100 /ul Negative [facility] Urine pHon 12-06-2023 pH (U) 6.0 [pH] 5.0 - 8.[address] [facility] Urine protein/creatinine mas s ratioon 12-06-2023 Protein/Creatinine (U) [Mass ratio] 117 mg/g CRE 0-[address] [facility] Urine sediment bacteria coun t by microscopy (number/high power field)on 12-06-2023 Bacteria LM.HPF (Urine sed) [#/Area] 0 /[HPF] None Seen [facility] Urine specific gravity measu rementon 12-06-2023 Specific gravity (U) [Rel density] 1.020 1.002-1.[address] [facility] Urine urobilinogen measureme nton 12-06-2023 Urobilinogen Ql (U) Normal mg/dl Normal [facility] Throat specimen bacteria mikayla ntification by cultureOrdered By: Damion Rodriguez on 05-11-2023 Bacteria identified Cx Nom (Throat) streptococcus isolated. [facility] 24 hour urine creatinine mirna surement (mass/time)on 01-07-2023 Creatinine (24H U) [Mass/Time] 1.59 g/24 HR 0.70-1.[address] [facility] 24 hour urine protein measur ement (mass/time)on 01-07-2023 Protein (24H U) [Mass/Time] 84.6 mg/24HR 0-[address] [facility] 24 hour urine protein measur ement (mass/volume)on 01-07-2023 Protein (24H U) [Mass/Vol] < 6.0 mg/dL 0.0-11.[address] [facility] Laboratory - Specimen inform ationon 01-07-2023 Collection duration (U) 24.0 HOURS 24.0-24.[address] [facility] No Panel Informationon 01-07 Timed Urine Volume 1510 mL [facility] Urine creatinine measurement (mass/volume)on 01-07-2023 Creatinine (U) [Mass/Vol] 105.00 mg/dL NO RANGE EST. [facility] Urine volume measurementon 0 01-07-2023 Specimen volume (U) 1.50 L [facility] Basophil percentageon 2022 Basophil percentage 0 SEEN /hpf 0-5 [facility] Basophil percentage 2.5 mg/dL 2.5-4.9 [facility] Chloride [Moles/Vol] 107 mmol/L 98-107 [facility] Glucose [Mass/Vol] 132 mg/dL 74-106 [facility] Comment on above: Fasting Glucose resu lt greater than or equal to 126 mg/dL suggests DIABETES MELLITUS per A.D.A. criteria. Potassium [Moles/Vol] 3.9 mmol/L 3.5-5.1 [facility] Sodium [Moles/Vol] 140 mmol/L 136-145 [facility] Bilirubin Test strip Ql (U)o n 12-27-2022 Bilirubin Ql (U) Negative Negative [facility] Ketones Test strip Ql (U)on 12-27-2022 Ketones Ql (U) Negative Negative [facility] Laboratory - Chemistry and C hemistry - challengeon 12-27-2022 CO2 [Moles/Vol] 27.0 mmol/L 21.0-32.[address] [facility] Urea nitrogen/Creatinine [Mass ratio] 15.2 mg/mg 10-[address] [facility] Mucus LM Ql (Urine sed)on Mucus Ql (Urine sed) 1+ /hpf [facility] Nitrite Test strip Ql (U)on 12-27-2022 Nitrite Ql (U) Negative Negative [facility] No Panel Informationon 12-27 Estimated GFR (MDRD) Amer 105 mL/min >[address] [facility] Comment on above: GFR Calc Estimated GFR (MDRD) Non-Af Amer 87 mL/min >[address] [facility] Comment on above: Non- GFR Calc Protein Test strip Ql (U)on 12-27-2022 Protein Ql (U) 15 mg/dl Negative [facility] Serum or plasma albumin angelito urement (mass/volume)on 12-27-2022 Albumin [Mass/Vol] 3.3 g/dL 3.2-5.0 [facility] Serum or plasma calcium angelito urement (mass/volume)on 12-27-2022 Calcium [Mass/Vol] 8.9 mg/dL 8.5-10.1 [facility] Serum or plasma creatinine m easurement (mass/volume)on 12-27-2022 Creatinine [Mass/Vol] 0.85 mg/dL 0.55-1.02 [facility] Comment on above: The validity of the calculated GFR & GFRAA in patients over 70 years has not been determined. Clinical correlation is essential. Serum or plasma urea nitroge n measurement (mass/volume)on 12-27-2022 Urea nitrogen [Mass/Vol] 13 mg/dL 7-[address] [facility] Squamous epithelial cells de tection in urine sediment by light microscopyon 12-27-2022 Epithelial cells.squamous LM Ql (Urine sed) 0-5 SEEN /hpf 5-[address] [facility] Urine blood detectionon 12-01 RBC Ql (U) Negative Negative [facility] RBC Ql (U) 0 SEEN /hpf 0-[address] [facility] Urine clarityon 12-27-2022 Clarity (U) Clear Clear [facility] Urine color determinationon 12-27-2022 Color (U) Yellow Yellow [facility] Urine creatinine measurement (mass/volume)on 12-27-2022 Creatinine (U) [Mass/Vol] 219.00 mg/dL NO RANGE EST. [facility] Urine glucose detectionon Glucose Ql (U) Normal mg/dl Normal [facility] Urine leukocyte esterase det ection by dipstickon 12-27-2022 Leukocyte esterase Test strip Ql (U) Negative Negative [facility] Urine pHon 12-27-2022 pH (U) 6.5 [pH] 5.0 - 8.[address] [facility] Urine protein measurement (m ass/volume)on 12-27-2022 Protein (U) [Mass/Vol] 20.2 mg/dL 0.0-11.8 [facility] Urine sediment bacteria coun t by microscopy (number/high power field)on 12-27-2022 Bacteria LM.HPF (Urine sed) [#/Area] 0 /[HPF] None Seen [facility] Urine specific gravity measu rementon 12-27-2022 Specific gravity (U) [Rel density] 1.015 1.002-1.[address] [facility] Urobilinogen Auto test strip Ql (U)on 12-27-2022 Urobilinogen Ql (U) Normal mg/dl Normal [facility] Absolute lymphocyte countOrd ered By: Dr. Rodriguez on 10-06-2022 Lymphocytes Auto (Unsp spec) [#/Vol] 1.84 10*3/uL 0.83-4.[address] [facility] Basophil percentageOrdered B y: Dr. Rodriguez on 10-06-2022 Basophils/100 WBC (Bld) 0.4 % 0-[address] [facility] Eosinophils/100 WBC (Bld) 2.5 % 0-[address] [facility] Neutrophils (Bld) [#/Vol] 2.8 10*3/uL 2.0-7.[address] [facility] Neutrophils/100 WBC (Bld) 52.8 % 47-[address] [facility] WBC (Bld) [#/Vol] 5.3 10*3/uL 4.4-11.0 [facility] Blood erythrocytes count (nu mber/volume)Ordered By: Dr. Rodriguez on 10-06-2022 RBC (Bld) [#/Vol] 4.75 10*6/uL 4.2-5.4 [facility] Blood hemoglobin measurement (mass/volume)Ordered By: Dr. Rodriguez on 10-06-2022 Hemoglobin (Bld) [Mass/Vol] 12.1 g/dL 12.0-15.[address] [facility] Blood lymphocytes/100 leukoc ytesOrdered By: Dr. Rodriguez on 10-06-2022 Lymphocytes/100 WBC (Bld) 35.0 % 19-[address] [facility] Blood monocytes/100 leukocyt esOrdered By: Dr. Rodriguez on 10-06-2022 Monocytes/100 WBC (Bld) 8.9 % 0-[address] [facility] Blood platelet mean volumeOr dered By: Dr. Rodriguez on 10-06-2022 Platelet mean volume (Bld) [Entitic vol] 9.0 fL 6.2-12.[address] [facility] Cervical or vagninal specime n microscopic examination by cytology stain (reported asOrdered By: Dr. Person on 10-06-2022 Cytology report Cyto stain Doc (Cvx/Vag) Comment . [facility] Comment on above: The Pap smear is a s creening test designed to aid in thedetection of premalignant and malignant conditions of theuterine cervix. It is not a diagnostic procedure andshould not be used as the sole means of detecting cervicalcancer. Both false-positive and false-negative reports dooccur. Determination of erythrocyte mean corpuscular volume (MCV)Ordered By: Dr. Rodriguez on 10-06-2022 MCV (RBC) [Entitic vol] 80.8 fL 81-[address] [facility] Hematocrit Auto (Bld) [Volum e fraction]Ordered By: Dr. Rodriguez on 10-06-2022 Hematocrit (Bld) [Volume fraction] 38.4 % 37-[address] [facility] Laboratory - CytologyOrdered By: Dr. Person on 10-06-2022 Pan Helper Cyto stain Nom (Cvx/Vag) [ID] Comment . [facility] Comment on above: Clinton Monreal, Retail Seasonal Specialist (ASCP) Laboratory - Hematology and Cell countsOrdered By: Dr. Rodriguez on 10-06-2022 Erythrocyte distribution width (RBC) [Entitic vol] 47.8 fL 35.1-43.[address] [facility] Erythrocyte distribution width (RBC) [Ratio] 16.2 % 11.6-14.[address] [facility] Immature granulocytes/100 WBC (Bld) 0.400 % 0.0-0.[address] [facility] Comment on above: IG% - Immature Granu locytes (promyelocytes, myelocytes and metamyelocytes) > 1% indicates that a LEFT SHIFT is Present. MCH (RBC) [Entitic mass] 25.5 pg 27.0-32.[address] [facility] Nucleated RBC/100 WBC (Bld) [Ratio] 0 % 0-[address] [facility] Laboratory - Miscellaneous t estsOrdered By: Dr. Person on 10-06-2022 Service comment (Unsp spec) [Interp] Comment . [facility] Comment on above: This liquid based Th inPrep(R) pap test was screened withthe use of an image guided system. Service comment (Unsp spec) [Interp] . . [facility] MCHC Auto (RBC) [Mass/Vol]Or dered By: Dr. Rodriguez on 10-06-2022 MCHC (RBC) [Mass/Vol] 31.5 g/dL 32-36 [facility] No Panel InformationOrdered By: Dr. Person on 10-06-2022 Human Papillomavirus Screen Comment . [facility] Comment on above: The HPV DNA reflex c lloyd were not met with this specimenresult therefore, no HPV testing was performed.Performed at: [address] [id number] Director: Karrie Bowles MD, Phone: [phone] Pathology report final diagnosis Narrative Comment . [facility] Comment on above: NEGATIVE FOR INTRAEP ITHELIAL LESION OR MALIGNANCY. Platelets bldOrdered By: Dr. Rodriguez on 10-06-2022 Platelets (Bld) [#/Vol] 391 10*3/uL 150-[address] [facility] Serum or plasma ferritin mirna surement (mass/volume)Ordered By: Dr. Rodriguez on 10-06-2022 Ferritin [Mass/Vol] 30 ng/mL [facility] Serum or plasma ferritin mirna surement (mass/volume)on 07-29-2022 Ferritin [Mass/Vol] 6 ng/mL [facility] Work Phone: Absolute lymphocyte counton 07-28-2022 Lymphocytes Auto (Unsp spec) [#/Vol] 1.23 10*3/uL 0.83-4.[address] [facility] Work Phone: Absolute reticulocyte counto n 07-28-2022 Reticulocytes (Bld) [#/Vol] 0.00 10*3/uL 0-[address] [facility] Work Phone: Basophil percentageon 2021 Basophil percentage 2.8 mg/dL 2.5-4.9 [facility] Work Phone: Bilirubin [Mass/Vol] 0.20 mg/dL 0.20-1.00 [facility] Work Phone: Comment on above: For patients on eltr ombopag therapy, use of Dimension [place] TBIL is not recommended. Chloride [Moles/Vol] 107 mmol/L 98-107 [facility] Work Phone: Cholesterol [Mass/Vol] 196 mg/dL <200 [facility] Work Phone: Comment on above: <200 mg/dL Desirable 200-240 mg/dL Borderline >240 mg/dL High Risk Glucose [Mass/Vol] 86 mg/dL 74-106 [facility] Work Phone: Neutrophils (Bld) [#/Vol] 1.6 10*3/uL 2.0-7.[address] [facility] Work Phone: Potassium [Moles/Vol] 3.8 mmol/L 3.5-5.1 [facility] Work Phone: Protein [Mass/Vol] 7.4 g/dL 6.4-8.2 [facility] Work Phone: Sodium [Moles/Vol] 140 mmol/L 136-145 [facility] Work Phone: Triglyceride [Mass/Vol] 180 mg/dL <[address] [facility] Work Phone: Comment on above: The drugs N-Acetylcy steine and Metamizole may falsely depress this assay.Serum Triglycerides Reference Interval Normal <150 mg/dL Borderline high 150 - 199 mg/dL High 200 - 499 mg/dL Very High > or = 500 mg/dL WBC (Bld) [#/Vol] 3.3 10*3/uL 4.4-11.0 [facility] Work Phone: Bilirubin Test strip Ql (U)o n 07-28-2022 Bilirubin Ql (U) Negative Negative [facility] Work Phone: Blood erythrocytes count (nu mber/volume)on 07-28-2022 RBC (Bld) [#/Vol] 4.76 10*6/uL 4.2-5.4 [facility] Work Phone: Blood hemoglobin measurement (mass/volume)on 07-28-2022 Hemoglobin (Bld) [Mass/Vol] 11.3 g/dL 12.0-15.[address] [facility] Work Phone: Blood platelet mean volumeon 07-28-2022 Platelet mean volume (Bld) [Entitic vol] 9.6 fL 6.2-12.[address] [facility] Work Phone: Determination of erythrocyte mean corpuscular volume (MCV)on 07-28-2022 MCV (RBC) [Entitic vol] 77.3 fL 81-[address] [facility] Work Phone: Direct bilirubinon 2 Bilirubin.direct [Mass/Vol] 0.05 mg/dL 0.00-0.[address] [facility] Work Phone: Hematocrit Auto (Bld) [Volum e fraction]on 07-28-2022 Hematocrit (Bld) [Volume fraction] 36.8 % 37-[address] [facility] Work Phone: Ketones Test strip Ql (U)on 07-28-2022 Ketones Ql (U) Negative Negative [facility] Work Phone: Laboratory - Chemistry and C hemistry - challengeon 07-28-2022 ALP [Catalytic activity/Vol] 108 U/L 45-[address] [facility] Work Phone: ALT [Catalytic activity/Vol] 24 U/L 13-[address] [facility] Work Phone: Cholesterol.total/Chol esterol in HDL [Mass ratio] 4.50 {ratio} [facility] Work Phone: CO2 [Moles/Vol] 24.0 mmol/L 21.0-32.[address] [facility] Work Phone: Globulin (S) [Mass/Vol] 4.3 g/dL 2.2-4.[address] [facility] Work Phone: Urea nitrogen/Creatinine [Mass ratio] 10.9 mg/mg 10-[address] [facility] Work Phone: Laboratory - Hematology and Cell countson 07-28-2022 Erythrocyte distribution width (RBC) [Entitic vol] 48.0 fL 35.1-43.[address] [facility] Work Phone: Erythrocyte distribution width (RBC) [Ratio] 17.1 % 11.6-14.[address] [facility] Work Phone: MCH (RBC) [Entitic mass] 23.7 pg 27.0-32.[address] [facility] Work Phone: Nucleated RBC/100 WBC (Bld) [Ratio] 0 % 0-[address] [facility] Work Phone: MCHC Auto (RBC) [Mass/Vol]on 07-28-2022 MCHC (RBC) [Mass/Vol] 30.7 g/dL 32-36 [facility] Work Phone: Nitrite Test strip Ql (U)on 07-28-2022 Nitrite Ql (U) Negative Negative [facility] Work Phone: No Panel Informationon 07-28 Estimated GFR (MDRD) Amer 97 mL/min >[address] [facility] Work Phone: Comment on above: GFR Calc Estimated GFR (MDRD) Non-Af Amer 80 mL/min >[address] [facility] Work Phone: Comment on above: Non- GFR Calc Platelets bldon 07-28-2022 Platelets (Bld) [#/Vol] 428 10*3/uL 150-[address] [facility] Work Phone: Protein Test strip Ql (U)on 07-28-2022 Protein Ql (U) Negative Negative [facility] Work Phone: Segmented neutrophils/100 WB C Auto (Bld)on 07-28-2022 Segmented neutrophils/100 WBC (Bld) 47.7 % 47-[address] [facility] Work Phone: Serum or plasma albumin angelito urement (mass/volume)on 07-28-2022 Albumin [Mass/Vol] 3.1 g/dL 3.2-5.0 [facility] Work Phone: Serum or plasma albumin/glob ulin mass ratioon 07-28-2022 Albumin/Globulin [Mass ratio] 0.7 {ratio} 0.9-2.[address] [facility] Work Phone: Serum or plasma calcium angelito urement (mass/volume)on 07-28-2022 Calcium [Mass/Vol] 8.7 mg/dL 8.5-10.1 [facility] Work Phone: Serum or plasma cholesterol in HDL measurement (mass/volume)on 07-28-2022 Cholesterol in HDL [Mass/Vol] 44 mg/dL >[address] [facility] Work Phone: Comment on above: The drugs N-Acetylcy steine and Metamizole may falsely depress this assay. Reference Range HDL <40 mg/dL Low HDL Cholesterol HDL >or= 60 mg/dL High HDL Cholesterol Serum or plasma cholesterol in VLDL measurement (mass/volume)on 07-28-2022 Cholesterol in VLDL [Mass/Vol] 36 mg/dL 5-[address] [facility] Work Phone: Serum or plasma creatinine m easurement (mass/volume)on 07-28-2022 Creatinine [Mass/Vol] 0.92 mg/dL 0.55-1.02 [facility] Work Phone: Comment on above: The validity of the calculated GFR & GFRAA in patients over 70 years has not been determined. Clinical correlation is essential. Serum or plasma low density lipoprotein (LDL) cholesterol measurement (mass/volume)on 07-28-2022 Cholesterol in LDL [Mass/Vol] 116 mg/dL 0-[address] [facility] Work Phone: Serum or plasma urea nitroge n measurement (mass/volume)on 07-28-2022 Urea nitrogen [Mass/Vol] 10 mg/dL 7-[address] [facility] Work Phone: Serum or plasma uric acid me asurement (mass/volume)on 07-28-2022 Urate [Mass/Vol] 5.9 mg/dL 2.6-6.[address] [facility] Work Phone: Comment on above: The drugs N-Acetylcy steine and Metamizole may falsely depress this assay. Thin prep Papanicolaou smear with manual screeningon 07-28-2022 Thin prep Papanicolaou smear with manual screening 15 U/L 15-[address] [facility] Work Phone: Thin prep Papanicolaou smear with manual screening 9 5-[address] [facility] Work Phone: Thin prep Papanicolaou smear with manual screening 173 U/L 84-[address] [facility] Work Phone: Urine blood detectionon 07-01 RBC Ql (U) Negative Negative [facility] Work Phone: Urine clarityon 07-28-2022 Clarity (U) Sl Cloudy Clear [facility] Work Phone: Urine color determinationon 07-28-2022 Color (U) Yellow Yellow [facility] Work Phone: Urine glucose detectionon Glucose Ql (U) Normal mg/dl Normal [facility] Work Phone: Urine leukocyte esterase det ection by dipstickon 07-28-2022 Leukocyte esterase Test strip Ql (U) 25 /ul Negative [facility] Work Phone: Urine pHon 07-28-2022 pH (U) 6.0 [pH] 5.0 - 8.[address] [facility] Work Phone: Urine specific gravity measu rementon 07-28-2022 Specific gravity (U) [Rel density] 1.020 1.002-1.[address] [facility] Work Phone: Urobilinogen Auto test strip Ql (U)on 07-28-2022 Urobilinogen Ql (U) Normal mg/dl Normal [facility] Work Phone: Vital Signs Date Time Vital Sign Value Performing Clinician Faci lity 10-09-2023 11:04-0500 Body height 167.[address] Damion Rodriguez Work Phone: [facility] 10-09-2023 10:58-0500 Body mass index (BMI) [Ratio] 33 kg/m2 Dr. Damion Rodriguez Work Phone: [facility] 10-09-2023 10:58-0500 Body weight 92.[address] Damion Rodriguez Work Phone: [facility] 10-09-2023 10:58-0500 Diastolic blood pressure 72 mm[Hg] Dr. Damion Rodriguez Work Phone: [facility] 10-09-2023 10:58-0500 Systolic blood pressure 116 mm[Hg] Dr. Damion Rodriguez Work Phone: [facility] 10-06-2022 11:55-0500 Body height 167.[address] Damion Rodriguez Work Phone: [facility] 10-06-2022 11:54-0500 Body mass index (BMI) [Ratio] 31.3 kg/m2 Dr. Damion Rodriguez Work Phone: [facility] 10-06-2022 11:54-0500 Body weight 87.[address] Damion Rdoriguez Work Phone: [facility] 10-06-2022 11:54-0500 Diastolic blood pressure 87 mm[Hg] Dr. Damion Rodriguez Work Phone: [facility] 10-06-2022 11:54-0500 Systolic blood pressure 124 mm[Hg] Dr. Damion Rodriguez Work Phone: [facility] Encounters Encounter Date Encounter Type Care Provider Facility Start: 09-03-2025 End: 09-03-2025 ambulatory Damion Rodriguez Facility:[facility] Start: 07-23-2025 ambulatory Health Risk Assessment Facility:[facility] Start: 12-03-2024 End: 12-03-2024 ambulatory Damion Rodriguez Facility:[facility] Start: 10-10-2024 End: 10-10-2024 ambulatory Damion Rodriguez Facility:[facility] Start: 10-10-2024 End: 10-10-2024 ambulatory Henrietta Tate COMMUNITY ENGAGEMENT COORDINATOR Facility:[facility] Start: 12-06-2023 End: 12-06-[address] Damion Rodriguez Work Phone: [facility] Work Phone: Start: 12-06-2023 End: 12-06-[address] Damion Rodriguez Work Phone: [facility] Work Phone: Start: 10-09-2023 End: 10-09-[address] Damion Rodriguez Work Phone: [facility] Work Phone: Start: 05-11-2023 End: 05-11-[address] [facility] Work Phone: Start: 05-11-2023 End: 05-11-2023 Patient encounter procedure [facility], Specimen Work Phone: Start: 01-07-2023 End: 01-07-[address] Damion Rodriguez Work Phone: [facility] Work Phone: Start: 01-07-2023 End: 01-07-[address] [facility] Start: 01-06-2023 End: 01-06-[address] Damion Rodriguez Work Phone: [facility] Work Phone: Start: 01-06-2023 End: 01-06-[address] [facility] Start: 12-27-2022 End: 12-27-[address] Damion Rodriguez Work Phone: [facility] Work Phone: Start: 12-27-2022 End: 12-27-[address] Dam[facility] Rodriguez [facility] Start: 10-06-2022 End: 10-06-[address] Damion Rodriguez Work Phone: [facility] Work Phone: Start: 10-06-2022 End: 10-06-[address] Dam[facility] Rodriguez [facility] Start: 10-06-2022 End: 10-06-[address] Damion Rodriguez Work Phone: [facility] Start: 07-29-2022 End: 07-29-[address] Damion Rodriguez Work Phone: [facility] Start: 07-28-[address] Damion Weber [facility] Date Procedure Procedure Detail Performing Clinician Start: 05-11-2023 Bacteria identificat ion test Start: 01-06-[address] Karan Rodriguez Work Phone: Immunizations Immunization Date Immunization Notes Care Provider [facility] 08-17-2023 influenza, injectabl e, quadrivalent, preservative free Dr. Damion Rodriguez Work Phone: [facility] 10-20-2021 Covid (Pfizer) Dr. Damion gibbons Work Phone: [facility] 09-29-2021 Covid (Pfizer) Dr. Damion gibbons Work Phone: [facility] 08-11-2021 influenza, injectabl e, quadrivalent, preservative free Dr. Damion Rodriguez Work Phone: [facility] 08-11-2021 influenza, seasonal, injectable Dr. Damion Rodriguez Work Phone: [facility] 07-28-2020 influenza, injectabl e, quadrivalent, preservative free Dr. Damion Rodriguez Work Phone: [facility] 07-28-2020 influenza, seasonal, injectable Dr. Damion Rodriguez Work Phone: [facility] Payers Date Payer Category Payer Self-pay [id number] 2023 Unknown [id number] Unknown [employer] [id number] Unknown [id number] Unknown [id number] Unknown [id number] Unknown [id number] Social History Date Type Detail Facility Start: 10-06-2022 End: 10-09-2023 Tobacco smoking status NHIS Unknown if ever smoked [facility] Start: 2000 Sex Assigned At Female W [facility] Clinical Note 10-06-2022 Note Date & Type Note Facility 10-06-[address] [facility] Work Phone: Pap Smear Specimen Adequacy October 06, 2022 1:55pm Comment . Satisfactory for evaluation. Endocervical and/or squamous metaplasticcells (endocervical component) are present. Comment on above: Satisfactory for eulalio luation. Endocervical and/or squamous metaplasticcells (endocervical component) are present. Clinical Note 10-06-2022 Note Date & Type Note Facility 10-06-[address] [facility] Pap Smear Specimen Adequacy October 06, 2022 1:55pm Comment . Satisfactory for evaluation. Endocervical and/or squamous metaplasticcells (endocervical component) are present. Comment on above: Satisfactory for eulalio luation. Endocervical and/or squamous metaplasticcells (endocervical component) are present. Clinical Note 10-06-2022 Note Date & Type Note Facility 10-06-[address] [facility] Pap Smear Specimen Adequacy October 06, 2022 2:55pm Comment . Satisfactory for evaluation. Endocervical and/or squamous metaplasticcells (endocervical component) are present. Comment on above: Satisfactory for eulalio luation. Endocervical and/or squamous metaplasticcells (endocervical component) are present. Clinical Note 10-06-2022 Note Date & Type Note Facility 10-06-[address] [facility] Pap Smear Specimen Adequacy October 06, 2022 2:55pm Comment . Satisfactory for evaluation. Endocervical and/or squamous metaplasticcells (endocervical component) are present. Comment on above: Satisfactory for eulalio luation. Endocervical and/or squamous metaplasticcells (endocervical component) are present. Evaluation note Note Date & Type Note Facility Evaluation note Diagnosis Onset Date Encounter for routine gyneco logical examination noneactive [facility] Work Phone: Evaluation note Note Date & Type Note Facility Evaluation note No assessment information availa ble [facility] Work Phone: Chief Complaint and Reason for Visit Chief Complaint Annual (CLAMP REMOVER) Reason for Visit Encounter for routin e gynecological examination Chief Complaint Annual (CLAMP REMOVER) Family history of polycystic kidney Reason for Visit Encounter for routin e gynecological examination Family History No Family History Records Found Relationship Condition Age at Onset Recorded Date/T jacqueline mother Renal failure Unknown Cardiac disease Unknown father Diabetes mellitus Unknown grandmother Diabetes mellitus Unknown Advance Directives No Advanced Directives Records Found Advance Directive Response Recorded Date/ Time Living Will No August 11 5:28am 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 [employer] Tool No August 11, 2021 5:28am Advance Directive Response Recorded Date/ Time Living Will No August 11 6:28am 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 Damion Rodriguez MD Family Provider Active Dr. Damion Rodriguez MD Primary Care Provider Active Team Status: Inactive Member Role Status Dates Dr. Damion Rodriguez MD Primary Care Provider, Referring P rovider Active Dr. Diana Person MD Attending Provider Active Team Status: Inactive Member Role Status Dates Dr. Damion Rodriguez MD Primary Care Provider Active Dr. Diana Person MD Attending Provider, Referr ing Provider Active Team Status: Inactive Member Role Status Dates Dr. Damion Rodriguez MD Primary Care Provider Active STEPHY SOLOMON Attending Provider Active Team Status: Active Member Role Status Dates Dr. Damion Rodriguez MD Primary Care Provider Active STEPHY SOLOMON Attending Provider Active Team Status: Inactive Member Role Status Dates Dr. Damino Rodriguez MD Primary Care Provide r, Attending Provider, Referring Provider Active Team Status: Inactive Member Role Status Dates Dr. Damion Rodriguez MD Primary Care Provider, Referring P rovider Active Henrietta Tate COMMUNITY ENGAGEMENT COORDINATOR, COMMUNITY ENGAGEMENT COORDINATOR-C Attending Provider Active INFORMATION SOURCE (unrecogn ized section and content) DATE CREATED AUTHOR 09/04/2025 [facility] FOR RECORDS PERTAINING TO PATIENTS WHO ARE OR HAVE BEEN ENROLLED IN A CHEMICAL DEPENDENCY/SUBSTANCEABUSE PROGRAM, SOME INFORMATION MAY BE OMITTED. This clinical summary was aggregated from multiple sources. Caution should be exercised in using it in the provision of clinical care. This summary normalizes information from multiple sources, and as a consequence, information in this document may materially change the coding, format and clinical context of patient data. In addition, data may be omitted in some cases. CLINICAL DECISIONS SHOULD BE BASED ON THE PRIMARY CLINICAL RECORDS. [facility] provides no warranty or guarantee of the accuracy or completeness of information in this document.
== END | disposition home or self-care (01) ==
LOC: LABSPEC 16:20
PROVIDERS: PCP Family Medicine; Visit Provider Nurse Practitioner Women's Health
DX: Z12.4 Encounter for screening for malignant neoplasm of cervix (principal)
CPT/HCPCS: 88175; G0145